=== PATIENT | male | born 1965 | race Caucasian/White ===

== ENCOUNTER 2017-12-20 10:17 | Observation (INO) ==
[2017-12-20] MEDS ORDERED: Ondansetron 4 MG/2 ML VIAL IVP ONE (10:27)
[2017-12-20] MEDS ORDERED: Isovue-370 500 ML INFUS..BTL IV ONE (10:29)
[2017-12-20] MEDS ORDERED: *HR* FentaNYL (PF) 100 MCG/2 ML VIAL IVP ONE (10:30)
--- NOTE | 2017-12-20 10:34 | Emergency Department Note ---
Disposition Clinical Impression: Acute cholecystitis Abdominal pain Qualifiers: Abdominal location: right upper quadrant Qualified Code(s): R10.11 - Right upper quadrant pain Disposition: Admitted As Inpatient Condition: Fair Referrals: Destiney Richard [Primary Care Provider] - Forms: ED Satisfaction Letter, Work/School Release Time of Disposition: 13:38 Abdominal Pain HPI - General Chief Complaint: ED Abdominal Pain Stated Complaint: RLQ Abdominal Pain since AM Time Seen by Provider: 12/20/17 10:23 Source: EMS Mode of arrival: EMS Limitations: no limitations Nursing Notes Reviewed: Yes Vital Signs Reviewed: Yes - History of Present Illness HPI Narrative: Patient is a 52-year-old male who presents to [facility] ED with a chief complaint of right upper quadrant abdominal pain. States his symptoms started this morning when he woke up. He has not been able to eat due to the pain. He has been nauseated but has not vomited. No fevers or chills. No prior abdominal surgeries. No chest pain, difficulty breathing, problems with urination. States he has not had a bowel movement in 2 days. States the pain is 10 out of 10 and is constant. Pt Subjective Complaint: abdominal pain Onset (ago): hour(s) Consistency: constant Location: RUQ Pain Severity: severe Pain Scale: 10 Quality: stabbing, aching Radiation: none Migration to: no migration Improves with: nothing Worsens with: nothing Associated symptoms: Reports: nausea, constipation. Denies: vomiting, diarrhea , fever, chills, dysuria Treatments prior to arrival: none - Related Data Home Medications Medication Instructions Recorded Confirmed Atorvastatin [Lipitor] 10 mg PO HS 12/20/17 12/20/17 Cholecalciferol (D-3) [Vitamin D] 1,000 unit PO DAILY 12/20/17 12/20/17 Doxepin HCl 10 mg PO HS 12/20/17 12/20/17 Folic Acid 1 mg PO DAILY 12/20/17 12/20/17 Gabapentin [Neurontin] 800 mg PO QID 12/20/17 12/20/17 Oxycodone HCl/Acetaminophen 1 tab PO Q6H PRN 12/20/17 12/20/17 [Percocet 5-325 mg Tablet] Tamsulosin HCl [Flomax] 0.4 mg PO DAILY 12/20/17 12/20/17 Venlafaxine XR (24 HR) [Effexor XR] 150 mg PO DAILY 12/20/17 12/20/17 clonazePAM [Klonopin] 1 mg PO BID 12/20/17 12/20/17 Allergies Allergy/AdvReac Type Severity Reaction Status Date / Time amitriptyline Allergy Nightmare Verified 08/01/17 12:55 All systems ED: reviewed and negative except as stated. Abdominal Pain PMH - Past Medical History Medical history: Reports: arthritis, hypertension, other (chronic back pain) Psychiatric history: Reports: no psych history, anxiety, depression - Social History Smoking status: Current every day smoker Alcohol use: Reports: none Drug use: Reports: marijuana Physical Exam - General Limitations: no limitations General appearance: alert, in no apparent distress - Head Head exam: atraumatic, normocephalic, normal inspection - Eye Eye exam: Present: EOMI - ENT ENT exam: normal exam, normal oropharynx, mucous membranes moist - Neck Neck exam: Present: normal inspection, full ROM, trachea midline - Chest Chest inspection: Present: normal inspection, symmetric chest wall rise - Respiratory Respiratory exam: Present: normal lung sounds bilaterally - Cardiovascular Cardiovascular exam: Present: regular rate, normal rhythm, normal heart sounds - Abdominal Exam Abdominal exam: Present: soft, tenderness Abdominal tenderness: Present: RUQ, diffuse, severe - Extremities Exam Extremities exam: Present: normal inspection, full ROM. Absent: tenderness, pedal edema - Neurological Exam Neurological exam: Present: alert, oriented X3 - Psychiatric Psychiatric exam: Present: normal affect, normal mood - Skin Skin exam: Present: warm, dry, intact, normal color Course Course Narrative: Patient seen and examined. Right upper quadrant pain since this morning. Abdominal labs, CT abdomen and pelvis with IV contrast ordered. Bedside ultrasound did show some signs of gallstones and gallbladder wall thickening. Upon discussing with the surgeon Dr. Bhatt, would like for most imaging ordered. We will get a ultrasound of the gallbladder as well. We will continue with the CT since he also has some pain that is generalized. - Reevaluation(s) Reevaluation #1: Imaging shows signs of acute cholecystitis. Findings were discussed with surgeon Dr. Bhatt who would like Mefoxin started. Surgery will consult. We will discuss with hospitalist for admission. Time: 12:41 Reevaluation #2: Discussed with the hospitalist Dr. Saleh who has accepted patient for admission. Time: 13:19 Vital Signs Temperature 97.8 F 12/20/17 10:21 Pulse Rate 62 12/20/17 10:21 Respiratory Rate 20 12/20/17 10:21 Blood Pressure 178/129 12/20/17 10:21 O2 Sat by Pulse Oximetry 98 12/20/17 10:21 Temperature 97.8 F 12/20/17 10:21 Pulse Rate 62 12/20/17 12:57 Respiratory Rate 18 12/20/17 12:57 Blood Pressure 183/121 12/20/17 12:57 O2 Sat by Pulse Oximetry 97 12/20/17 12:57 Oxygen Delivery Oxygen Delivery Room Air Abdominal Pain - Medical Records Medical records reviewed: Yes I reviewed the patient's medical records. - Lab Data Lab results reviewed: Yes I reviewed the patient's lab results. Result diagrams: 12/20/17 10:49 12/20/17 10:49 Lab Results 12/20/17 12/20/17 12/20/17 Range/Units 10:49 10:49 10:49 WBC 10.7 (4.3-11.1) K/mcL RBC 5.03 (4.19-5.50) M/mcL Hgb 15.7 (12.9-16.9) g/dL Hct 46.4 (37.5-50.1) % MCV 92.2 (83.0-100.0) fL MCH 31.2 (28.0-33.3) pg MCHC 33.8 (31.6-35.5) g/dL RDW 13.0 (11.5-14.5) % Plt Count 238 (140-400) K/mcL MPV 10.2 (9.4-12.4) fL Immature Gran % 0.4 (0-4) % Seg Neutrophils % 71.9 % Lymphocytes % 18.5 % Monocytes % 5.6 % Eosinophils % 2.9 % Basophils % 0.7 % Neutrophils # 7.7 (1.6-8.9) K/mcL Lymphocytes # 2.0 (0.6-4.6) K/mcL Monocytes # 0.6 (0.0-1.3) K/mcL Eosinophils # 0.3 (0.0-0.6) K/mcL Basophils # 0.1 (0.0-0.2) K/mcL Sodium 143 (136-145) mEq/L Potassium 4.0 (3.5-5.1) mEq/L Chloride 109 H (98-107) mEq/L Carbon Dioxide 26 (23-29) mEq/L BUN 15 (6-20) mg/dL Creatinine 0.89 (0.70-1.30) mg/dL Est GFR ( Amer) > 60 (> 60) Est GFR (Non-Af Amer) > 60 (> 60) BUN/Creatinine Ratio 17 (6-26) Glucose 122 H (70-105) mg/dL Calculated Osmolality 298 (280-300) Lactic Acid 1.6 (0.5-2.2) mmol/L Calcium 9.7 (8.6-10.3) mg/dL Total Bilirubin 0.2 L (0.3-1.0) mg/dL Direct Bilirubin 0.1 (0.0-0.2) mg/dL Indirect Bilirubin 0.1 (0.0-1.2) mg/dL AST 11 L (13-39) Units/L ALT 10 (7-52) Units/L Alkaline Phosphatase 75 (34-104) Units/L Troponin I < 0.03 (< 0.04) ng/mL Serum Total Protein 6.7 (6.4-8.9) g/dL Albumin 4.5 (3.5-5.7) g/dL Globulin 2.2 L (2.4-3.5) g/dL Albumin/Globulin Ratio 2.0 (1.1-2.2) Lipase 20 (11-82) Units/L Urine Color (Yellow) Urine Clarity (Clear) Urine pH (5.0-8.0) pH Units Ur Specific [place] (1.010-1.025) Urine Protein (Neg-Trace) mg/dL Urine Glucose (UA) (Normal) mg/dL Urine Ketones (Negative) mg/dL Urine Blood (Negative) Urine Nitrite (Negative) Urine Bilirubin (Negative) Urine Urobilinogen (Normal) mg/dL Ur Leukocyte Esterase (Negative) Urine Microscopic RBC (0-3) per hpf Urine Microscopic WBC (0-3) per hpf Ur Squamous Epith Cells (None-Few) per lpf Urine Bacteria (None-Few) per hpf Hyaline Casts (None-Few) per lpf Ur Culture Indicated? (NO) Hepatitis A IgM Ab (Nonreactive) Hep Bs Antigen (Nonreactive) Hep B Core IgM Ab (Nonreactive) Hepatitis C Ab Screen (Nonreactive) 12/20/17 12/20/17 Range/Units 10:49 12:59 WBC (4.3-11.1) K/mcL RBC (4.19-5.50) M/mcL Hgb (12.9-16.9) g/dL Hct (37.5-50.1) % MCV (83.0-100.0) fL MCH (28.0-33.3) pg MCHC (31.6-35.5) g/dL RDW (11.5-14.5) % Plt Count (140-400) K/mcL MPV (9.4-12.4) fL Immature Gran % (0-4) % Seg Neutrophils % % Lymphocytes % % Monocytes % % Eosinophils % % Basophils % % Neutrophils # (1.6-8.9) K/mcL Lymphocytes # (0.6-4.6) K/mcL Monocytes # (0.0-1.3) K/mcL Eosinophils # (0.0-0.6) K/mcL Basophils # (0.0-0.2) K/mcL Sodium (136-145) mEq/L Potassium (3.5-5.1) mEq/L Chloride (98-107) mEq/L Carbon Dioxide (23-29) mEq/L BUN (6-20) mg/dL Creatinine (0.70-1.30) mg/dL Est GFR ( Amer) (> 60) Est GFR (Non-Af Amer) (> 60) BUN/Creatinine Ratio (6-26) Glucose (70-105) mg/dL Calculated Osmolality (280-300) Lactic Acid (0.5-2.2) mmol/L Calcium (8.6-10.3) mg/dL Total Bilirubin (0.3-1.0) mg/dL Direct Bilirubin (0.0-0.2) mg/dL Indirect Bilirubin (0.0-1.2) mg/dL AST (13-39) Units/L ALT (7-52) Units/L Alkaline Phosphatase (34-104) Units/L Troponin I (< 0.04) ng/mL Serum Total Protein (6.4-8.9) g/dL Albumin (3.5-5.7) g/dL Globulin (2.4-3.5) g/dL Albumin/Globulin Ratio (1.1-2.2) Lipase (11-82) Units/L Urine Color Yellow (Yellow) Urine Clarity Clear (Clear) Urine pH 6.0 (5.0-8.0) pH Units Ur Specific [place] 1.029 H (1.010-1.025) Urine Protein Negative (Neg-Trace) mg/dL Urine Glucose (UA) Normal (Normal) mg/dL Urine Ketones Negative (Negative) mg/dL Urine Blood Negative (Negative) Urine Nitrite Negative (Negative) Urine Bilirubin Negative (Negative) Urine Urobilinogen Normal (Normal) mg/dL Ur Leukocyte Esterase Moderate H (Negative) Urine Microscopic RBC 0-3 (0-3) per hpf Urine Microscopic WBC 15-30 H (0-3) per hpf Ur Squamous Epith Cells Few (None-Few) per lpf Urine Bacteria Few (None-Few) per hpf Hyaline Casts None Seen (None-Few) per lpf Ur Culture Indicated? YES A (NO) Hepatitis A IgM Ab Nonreactive (Nonreactive) Hep Bs Antigen Nonreactive (Nonreactive) Hep B Core IgM Ab Nonreactive (Nonreactive) Hepatitis C Ab Screen Nonreactive (Nonreactive) - Radiology Data Radiology results reviewed: Yes I reviewed the patient's radiology results. Abdomen/Pelvis CT 12/20/17 10:29 IMPRESSION: Multiple stones seen within the gallbladder with pericholecystic fluid and mild intrahepatic biliary ductal dilatation concerning for acute cholecystitis. Persistent mild distention of the bladder. D/ / 12/20/2017 12:43:20 Yakov Harrell MD / Jennifer Solano Interpreting Provider: Yakov Harrell MD Gallbladder Ultrasound 12/20/17 10:50 IMPRESSION: Cholelithiasis and positive Rivers sign. Findings could represent acute cholecystitis. Consider HIDA scan for further evaluation. Common duct is mildly dilated at 10 mm, though this is unchanged from prior CT. This could be further evaluated with MRI/ MRCP if indicated. D/ / Nj Balderas MD / Nj Balderas MD Interpreting Provider: Nj Balderas MD - EKG Data EKG attestation: Yes I reviewed and interpreted this EKG. EKG results narrative: EKG done at 10:30 shows normal sinus rhythm with a rate of [address] elevation or depression noted. Normal axis. Attestation Statement - Attestation Attestation: I, Jack Maciel, examined this patient and my medical decision-making was reviewed with the SALES AND MARKETING ANALYST/PA/Advanced Practice Nurse/Resident Physician. I agree with the documented findings, disposition and treatment plan as described except to the extent set forth below. 52-year-old male presents emergency Department with concerns of right upper quadrant abdominal pain. Patient states symptoms started acutely today. States he felt at his baseline health yesterday and woke up with severe pain this morning. Patient denies fever, chills, recent trauma. He does have a history of alcohol abuse in the past. Patient denies history of gallbladder disease in the past. Abdomen was tender to palpation right upper quadrant with mild guarding without evidence of rigidity, or rebound. Bedside ultrasound showed gallbladder wall of 7.3 mm with possible pericholecystic fluid. There was also evidence of cholelithiasis on exam. We called the surgeon, Dr. Bhatt after our initial evaluation and his physician assistant professor of education evaluated the patient at bedside. Laboratory evaluation was largely within normal limits. Imaging studies of the right upper quadrant and abdomen are still pending.
[2017-12-20 11:00] LABS: Basophils # 0.1 K/mcL (0.0-0.2); Basophils % 0.7 %; Eosinophils # 0.3 K/mcL (0.0-0.6); Eosinophils % 2.9 %; Hematocrit 46.4 % (37.5-50.1); Hemoglobin 15.7 g/dL (12.9-16.9); Immature Granulocytes % 0.4 % (0-4); Lymphocytes % 18.5 %; Mean Corpuscular HGB Conc 33.8 g/dL (31.6-35.5); Mean Corpuscular Hemoglobin 31.2 pg (28.0-33.3); Mean Corpuscular Volume 92.2 fL (83.0-100.0); Mean Platelet Volume 10.2 fL (9.4-12.4); Monocytes # 0.6 K/mcL (0.0-1.3); Monocytes % 5.6 %; Neutrophils # 7.7 K/mcL (1.6-8.9); Platelet Count 238 K/mcL (140-400); Red Blood Count 5.03 M/mcL (4.19-5.50); Segmented Neutrophils % 71.9 %
[2017-12-20 11:30] LABS: Troponin I < 0.03 ng/mL (< 0.04)
[2017-12-20 11:37] LABS: Alanine Aminotransferase 10 Units/L (7-52); Albumin 4.5 g/dL (3.5-5.7); Alkaline Phosphatase 75 Units/L (34-104); Aspartate Amino Transferase 11 Units/L (13-39); BUN/Creatinine Ratio 17 (6-26); Bilirubin,Direct 0.1 mg/dL (0.0-0.2); Bilirubin,Indirect 0.1 mg/dL (0.0-1.2); Bilirubin,Total 0.2 mg/dL (0.3-1.0); Blood Urea Nitrogen 15 mg/dL (6-20); Calcium 9.7 mg/dL (8.6-10.3); Carbon Dioxide 26 mEq/L (23-29); Chloride 109 mEq/L (98-107); Globulin 2.2 g/dL (2.4-3.5); Glucose 122 mg/dL (70-105); Lipase 20 Units/L (11-82); Osmolality,Calculated 298 (280-300); Sodium 143 mEq/L (136-145); Total Protein 6.7 g/dL (6.4-8.9); eGFR For Non-African Americans > 60 (> 60)
[2017-12-20 12:55] LABS: Hepatitis A Antibody IgM Nonreactive (Nonreactive); Hepatitis B Core IgM Nonreactive (Nonreactive); Hepatitis B Surface Antigen Nonreactive (Nonreactive); Hepatitis C Virus Antibody Nonreactive (Nonreactive)
[2017-12-20] MEDS ORDERED: cefOXitin 1,000 MG in 0.9 % Sodium Chloride Mini Bag 100 ML IVPB STA (12:58)
[2017-12-20] MEDS ORDERED: *HR* HYDROmorphone (PF) 1 MG/ML SYRINGE IVP ONE (13:02)
[2017-12-20 13:24] LABS: Bilirubin,Urine Negative (Negative); Blood,Urine Negative (Negative); Clarity,Urine Clear (Clear); Color,Urine Yellow (Yellow); Glucose,Urine (UA) Normal (Normal); Ketones,Urine Negative (Negative); Leukocyte Esterase,Urine Moderate (Negative); Nitrite,Urine Negative (Negative); Protein,Urine Negative (Neg-Trace); Specific Gravity,Urine 1.029 (1.010-1.025); Urobilinogen,Urine Normal (Normal)
[2017-12-20 13:27] LABS: Bacteria,Urine Few per hpf (None-Few); Hyaline Casts,Urine None Seen per lpf (None-Few); RBC,Urine 0-3 per hpf (0-3); Squamous Epithelial Cell,Urine Few per lpf (None-Few); WBC,Urine 15-30 per hpf (0-3)
--- NOTE | 2017-12-20 13:30 | General Surgery Consult Note ---
Addendum entered and electronically signed by Jesusita Dawkins CNP 12/20/17 15: 07: Collaborated with attending surgeon. Will plan for surgical intervention in the next 24-48 hours. Recommendations, risks, and benefits are reviewed with the patient and he is agreeable to proceed. A signed consent is placed on the hard chart. Original Note: <Jesusita Dawkins - Last Filed: 12/20/17 14:14> Date of Encounter: 12/20/17 Time of Encounter: 12:00 Assessment and Plan (1) Symptomatic cholelithiasis Current Visit: Yes Status: Acute CT and GB ultrasound with multiple stones seen within the GB. Catina-cholecystic fluid in mild intrahepatic biliary ductal dilation concerning for acute cholecystitis. CBD remains mildly dilated at 10 mm which is unchanged for previous study. CBC is unremarkable, CMP, lipase, lactic acid, and fractionated bilirubin are unremarkable. His hepatitis screening is negative. He previously was a heavy drinker, but has not drank any alcohol in over 7 years. His assessment and imaging is consistent with symptomatic cholelithiasis and without evidence of choledocholithiasis Plan: Likely surgical intervention this admission MIV per primary team NPO Continue IV ATBX GI and DVT prophylaxis (2) Abdominal pain Current Visit: Yes Status: Acute Differential diagnosis include: acute cholecystits vs symptomatic cholelithiasis , vs GERD, vs liver pathology Patient reports dark stool at home for the last week. He recently had a colonoscopy done which showed colon polyps cecum as well as hyperplastic polyps in the rectum and sigmoid colon. hepatitis screening negative LFTs unremarkable Plan: GI cocktail GI prophylaxis IV ofirmev x1 further recommendations per a/p above Qualifiers: Abdominal location: right upper quadrant Qualified Code(s): R10.11 - Right upper quadrant pain History of Present Illness Consult date: 12/20/17 (Dr. Steve Bhatt) Reason for consult: abdominal pain Requesting physician: Sarah Marinelli History of present illness: Micky is a 52-year-old male with a past medical history of colon polyps , previous alcohol use (admits to drinking a "12 pack and a couple shots of liquor daily for several years), but has not drank any alcohol for over 7 years , smoking 1ppd for more than 20 years, marijuana use, arthritis, depression/ anxiety, GERD, hypertension, chronic back pain, shingles, and a surgical history of colonoscopy 2018. He presented on 12/20/2017 with complaints of RUQ for 24 hours. He denies fever , chills, headache, nausea, vomiting, urinary symptoms, diarrhea, constipation, or changes in bowel habits. he denies aggravating or alleviating factors. He reports the pain as 8/10, aching, constant, and without radiation to other areas. He denies bloody vomitus, tarry stool, or bright red blood per rectum. He does endorse "dark stool," but is not able to elaborate beyond that. Surgery has been asked to evaluate this patient for recommendations regarding RUQ pain. Past Med Surg Social Fam HX - Past Medical History Source: patient, old records reviewed Medical history: arthritis, GERD, hypertension Additional medical history: chronic back pain Psychiatric history: anxiety, depression - Past Surgical History Surgical History: orthopedic, other Additional surgical history: right great toe amputatiom, hardware placed in JAw - Social History Smoking Status: Current every day smoker Smokeless Tobacco Status: No Alcohol use: none Drug use: marijuana Occupational status: employed Current living situation: Home - Independent Activity Level: Independent ambulation Recent Out of Country Travel Within the Last 8 Weeks: No Exposure or Possible Exposure to Illness During Travel: No Medications and Allergies Atorvastatin [Lipitor] 10 mg PO HS 12/20/17 [History] Cholecalciferol (D-3) [Vitamin D] 1,000 unit PO DAILY 12/20/17 [History] Doxepin HCl 10 mg PO HS 12/20/17 [History] Folic Acid 1 mg PO DAILY 12/20/17 [History] Gabapentin [Neurontin] 800 mg PO QID 12/20/17 [History] Oxycodone HCl/Acetaminophen [Percocet 5-325 mg Tablet] 1 tab PO Q6H PRN [History] Tamsulosin HCl [Flomax] 0.4 mg PO DAILY 12/20/17 [History] Venlafaxine XR (24 HR) [Effexor XR] 150 mg PO DAILY 12/20/17 [History] clonazePAM [Klonopin] 1 mg PO BID 12/20/17 [History] 3 Allergy/AdvReac Type Severity Reaction Status Date / Time amitriptyline Allergy Nightmare Verified 08/01/17 12:55 Review of Systems All systems PM: reviewed and no additional remarkable complaints except as stated All systems PM: The remainder of the systems were reviewed and are negative General Surgery Exam Initial Vital Signs Temp Pulse Resp BP Pulse Ox 97.8 F 62 20 178/129 98 12/20/17 10:21 12/20/17 10:21 12/20/17 10:21 12/20/17 10:21 12/20/17 10:21 Vital Signs Temp Pulse Resp BP Pulse Ox 12/20/17 12:57 62 18 183/121 97 12/20/17 10:21 97.8 F 62 20 178/129 98 Intake and Output 12/19/17 12/20/17 12/20/17 23:59 07:59 15:59 Other: Weight 108.862 kg Patient Weight 12/20/17 23:59 Weight 108.862 kg VITAL SIGNS: Reviewed. See [facility] GENERAL: In no apparent distress. HEENT: Normocephalic, atraumatic, extraocular motions intact, Sclera is jaundice, oropharynx is pink and moist, there is no neck adenopathy or JVD noted. CHEST/RESPIRATORY: The thorax is free from signs of trauma. Lung sounds: clear to auscultation, normal respiratory effort CARDIAC: Regular rate and rhythm. Normal S1 and S2, without murmurs, gallops, or rubs. VASCULAR: No Edema. 2+ peripheral pulses. ABDOMEN: soft, nondistended, hypoactive bowel sounds, exquisitely tender in the right upper quadrant, positive Rivers sign. MUSCULOSKELETAL: Good range of motion of all major joints. Extremities without clubbing, cyanosis or edema. NEUROLOGIC EXAM: Alert and oriented x 3. Speech normal. Follows commands. PSYCHIATRIC: Mood normal. SKIN: No rash or lesions. Exam Initial Vital Signs Temp Pulse Resp BP Pulse Ox 97.8 F 62 20 178/129 98 12/20/17 10:21 12/20/17 10:21 12/20/17 10:21 12/20/17 10:21 12/20/17 10:21 Results - Labs 12/20/17 10:49 12/20/17 10:49 Abnormal lab results Chloride 109 mEq/L (98-107) H 12/20/17 10:49 Glucose 122 mg/dL (70-105) H 12/20/17 10:49 Total Bilirubin 0.2 mg/dL (0.3-1.0) L 12/20/17 10:49 AST 11 Units/L (13-39) L 12/20/17 10:49 Globulin 2.2 g/dL (2.4-3.5) L 12/20/17 10:49 Diabetes panel 12/20/17 Range/Units 10:49 Sodium 143 (136-145) mEq/L Potassium 4.0 (3.5-5.1) mEq/L Chloride 109 H (98-107) mEq/L Carbon Dioxide 26 (23-29) mEq/L BUN 15 (6-20) mg/dL Creatinine 0.89 (0.70-1.30) mg/dL Glucose 122 H (70-105) mg/dL Calcium 9.7 (8.6-10.3) mg/dL AST 11 L (13-39) Units/L ALT 10 (7-52) Units/L Alkaline Phosphatase 75 (34-104) Units/L Albumin 4.5 (3.5-5.7) g/dL Calcium panel 12/20/17 Range/Units 10:49 Calcium 9.7 (8.6-10.3) mg/dL Albumin 4.5 (3.5-5.7) g/dL Pituitary panel 12/20/17 Range/Units 10:49 Sodium 143 (136-145) mEq/L Potassium 4.0 (3.5-5.1) mEq/L Chloride 109 H (98-107) mEq/L Carbon Dioxide 26 (23-29) mEq/L BUN 15 (6-20) mg/dL Creatinine 0.89 (0.70-1.30) mg/dL Glucose 122 H (70-105) mg/dL Calcium 9.7 (8.6-10.3) mg/dL Adrenal panel 12/20/17 Range/Units 10:49 Sodium 143 (136-145) mEq/L Potassium 4.0 (3.5-5.1) mEq/L Chloride 109 H (98-107) mEq/L Carbon Dioxide 26 (23-29) mEq/L BUN 15 (6-20) mg/dL Creatinine 0.89 (0.70-1.30) mg/dL Glucose 122 H (70-105) mg/dL Calcium 9.7 (8.6-10.3) mg/dL Total Bilirubin 0.2 L (0.3-1.0) mg/dL AST 11 L (13-39) Units/L ALT 10 (7-52) Units/L Alkaline Phosphatase 75 (34-104) Units/L Albumin 4.5 (3.5-5.7) g/dL All other labs normal. - Imaging CT scan - abdomen: report reviewed CT scan - pelvis: report reviewed US - abdomen: report reviewed Consult Discharge Plan - Plan Referrals: Destiney Richard [Primary Care Provider] - <Steve Bhatt - Last Filed: 12/20/17 15:55> Date of Encounter: 12/20/17 Assessment and Plan (1) Acute cholecystitis Current Visit: Yes Status: Acute The patient has acute cholecystitis and cholelithiasis. We will plan lap scopic cholecystectomy and intraoperative cholangiogram later this afternoon. I discussed the risks and benefits with him and he wished to proceed. Review of Systems All systems PM: The remainder of the systems were reviewed and are negative General Surgery Exam Initial Vital Signs Temp Pulse Resp BP Pulse Ox 97.8 F 62 20 178/129 98 12/20/17 10:21 12/20/17 10:21 12/20/17 10:21 12/20/17 10:21 12/20/17 10:21 Exam Initial Vital Signs Temp Pulse Resp BP Pulse Ox 97.8 F 62 20 178/129 98 12/20/17 10:21 12/20/17 10:21 12/20/17 10:21 12/20/17 10:21 12/20/17 10:21 Results - Labs 12/20/17 10:49 12/20/17 10:49 Abnormal lab results Chloride 109 mEq/L (98-107) H 12/20/17 10:49 Glucose 122 mg/dL (70-105) H 12/20/17 10:49 Total Bilirubin 0.2 mg/dL (0.3-1.0) L 12/20/17 10:49 AST 11 Units/L (13-39) L 12/20/17 10:49 Globulin 2.2 g/dL (2.4-3.5) L 12/20/17 10:49 Ur Specific [place] 1.029 (1.010-1.025) H 12/20/17 12:59 Ur Leukocyte Esterase Moderate (Negative) H 12/20/17 12:59 Urine Microscopic WBC 15-30 per hpf (0-3) H 12/20/17 12:59 Ur Culture Indicated? YES (NO) A 12/20/17 12:59 All other labs normal. - Imaging CT scan - pelvis: image reviewed (I personally reviewed the CAT scan images of the abdomen and pelvis. The patient has cholelithiasis and pericholecystic fluid.) - Attending Attestation I have personally performed a face to face evaluation on this patient. I have reviewed and agree with the care plan. History and Exam by me shows: The patient is seen and evaluated on the general medical floor. He was admitted by our clinical nurse practitioner. I evaluated the patient and then discussed his care with the clinical nurse practitioner. The patient has had on and off pain for months now has unrelenting right upper quadrant pain. Ultrasound and CAT scan demonstrates cholelithiasis and pericholecystic fluid.
[2017-12-20] MEDS ORDERED: GI Cocktail 40 ML EACH PO ONE (13:33)
[2017-12-20] MEDS ORDERED: Acetaminophen IV 1,000 MG/100 ML INFUS..BTL IVPB ONE (13:33)
[2017-12-20] MEDS ORDERED: OXYCODONE Oral CONC 10 MG/0.5 ML ORAL.SYG SL PRN ×4 (14:11→19:29)
[2017-12-20] MEDS ORDERED: 0.9 % Sodium Chloride 1,000 ML IVC SCH (14:15)
[2017-12-20] MEDS ORDERED: Naloxone 0.4 MG/ML INJ IVP PRN ×2 (14:53→19:29)
--- NOTE | 2017-12-20 14:59 | Internal Med History&Physical ---
<Yael Graham - Last Filed: 12/20/17 21:40> Date of Encounter: 12/20/17 Time of Encounter: 14:59 Internal Medicine - H&P: HPI Chief complaint: RUQ Abdominal pain Admitted From: Home Plans for Post Hospital Care: Home History of present illness: Mr. Gauthier is a 52 year old male with history of HLD, HTN, alchol abuse (quit 7 years ago) and psych issues. The patient indicated that he began to have RUQ abdominal pain, that began a day or so ago. Ct of abd showed stones, acute cholecystitis with persistent mild distended bladder. The patient UA showed leukocyte esterase moderate amount, and wbc 15-30. Patient denies any urinary symptoms at home. The patient reports poor appetite, with associated nausea, constipation, pain in RUQ is reported as 10/10. ED consulted surgery and per their note plans for surgical intervention while inpatient. WBC is 10.7. Patient was started on Mefoxin per recommendation per Dr. Bhatt. I have discussed this case with Dr. Tipton. Past Med Surg Social Fam HX - Past Medical History Medical history: arthritis, hypertension, other (chronic back pain) Additional medical history: chronic back pain Psychiatric history: no psych history, anxiety, depression - Past Surgical History Surgical History: orthopedic, other Additional surgical history: right great toe amputatiom, hardware placed in JAw - Social History Smoking Status: Current every day smoker Smokeless Tobacco Status: No Alcohol use: none Drug use: marijuana Internal Medicine - H&P: Meds Atorvastatin [Lipitor] 10 mg PO HS 12/20/17 [History] Cholecalciferol (D-3) [Vitamin D] 1,000 unit PO DAILY 12/20/17 [History] Doxepin HCl 10 mg PO HS 12/20/17 [History] Folic Acid 1 mg PO DAILY 12/20/17 [History] Gabapentin [Neurontin] 800 mg PO QID 12/20/17 [History] Oxycodone HCl/Acetaminophen [Percocet 5-325 mg Tablet] 1 tab PO Q6H PRN [History] Tamsulosin HCl [Flomax] 0.4 mg PO DAILY 12/20/17 [History] Venlafaxine XR (24 HR) [Effexor XR] 150 mg PO DAILY 12/20/17 [History] clonazePAM [Klonopin] 1 mg PO BID 12/20/17 [History] 3 Allergy/AdvReac Type Severity Reaction Status Date / Time amitriptyline Allergy Nightmare Verified 08/01/17 12:55 All Systems PM: A 10-system review of systems was performed and is negative for pertinent findings except as documented above in the HPI. - Constitutional Constitutional: malaise, no chills, no fever(s), no night sweats - EENT Eyes: no change in vision, no discharge, no pain, no photophobia Ears: no ear discharge, no ear pain, no tinnitus Nose, mouth and throat: no dysphagia, no nasal discharge, no neck pain, no sore throat - Cardiovascular Cardiovascular ROS IM: no chest pain, no diaphoresis, no dyspnea, no lightheadedness, no palpitations, no syncope - Respiratory Respiratory: no cough, no dyspnea, no wheezing, no excessive phlegm production - Gastrointestinal Gastrointestinal: no abdominal pain, no diarrhea, no hematemesis, no hematochezia, no melena, no nausea, no vomiting - Musculoskeletal Musculoskeletal ROS IM: no numbness, no tingling - Integumentary Integumentary IM: no rash, no unusual bruising - Neurological Neurological ROS: no confusion, no convulsions, no focal weakness, no numbness, no tingling, no tremor(s) - Hematologic/Lymphatic Hematologic/Lymphatic: no easy bruising - Constitutional Vitals: Temp Pulse Resp BP Pulse Ox 97.8 F 62 18 183/121 97 12/20/17 10:21 12/20/17 12:57 12/20/17 12:57 12/20/17 12:57 12/20/17 12:57 Internal Med - H&P Results - Labs CBC & Chem 7: 12/20/17 10:49 12/20/17 10:49 - Assessment and plan (1) Abdominal pain Current Visit: Yes Status: Acute Assessment and plan: Surgical consult. Patient acute cholelithiasis will be managed by surgery. Monitor daily labs Qualifiers: Abdominal location: right upper quadrant Qualified Code(s): R10.11 - Right upper quadrant pain (2) Acute cholecystitis Current Visit: Yes Status: Acute Assessment and plan: Managed per surgery Monitor daily labs (3) Hypertension Current Visit: Yes Status: Acute Assessment and plan: BP uncontrolled, likely related to abdominal pain. However patient has history of hypertension No antihypertensive meds @ home Will provide hydralazine when necessary May need to add a oral anti-hypertensive Qualifiers: Hypertension type: essential hypertension Qualified Code(s): I10 - Essential (primary) hypertension - Time Spent With Patient Total time spent is greater than 50% in coordination of care (as documented) at patient's floor/unit and/or counseling patient: less than 15 minutes <Julieta Tipton O - Last Filed: 12/20/17 23:45> Date of Encounter: 12/20/17 Internal Medicine - H&P: HPI History of present illness: Mr. Gauthier is a 52 year old male that presented with RUQ pain. Pt states he had similar symptoms about 2 weeks ago but resolved spontaneously. ED disussed case with surgery and pt is s/p chapis dior. All Systems PM: A 10-system review of systems was performed and is negative for pertinent findings except as documented above in the HPI. - Constitutional Vitals: Temp Pulse Resp BP Pulse Ox 98.7 F 64 16 121/83 96 12/20/17 19:29 12/20/17 19:29 12/20/17 20:12 12/20/17 19:29 12/20/17 20:12 General appearance: Present: A&O X 3, no acute distress Exam: drowsy due to anesthesia - Head Head exam: Present: atraumatic, normocephalic - Eye Eye exam: Present: PERRL, conjuntiva pink, sclera anicteric Pupils: Present: PERRL - Neck Neck exam general surgery: Present: supple, trachea midline. Absent: lymphadenopathy - Respiratory Respiratory exam: Present: CTAB. Absent: accessory muscle use, rales, rhonchi, wheezes - Cardiovascular Cardiovascular exam: Present: RRR, +S1, +S2. Absent: diastolic murmur, gallop, rubs, systolic murmur - GI/Abdominal GI/Abdominal exam: Present: normal bowel sounds, soft, no peritoneal signs. Absent: distended, tenderness Additional comments: surgically tender abdomen - Extremities Exam Extremities exam: Present: warm, radial pulses palpable and symmetrical. Absent : calf tenderness, cyanotic, pedal edema - Neurological Exam Neurological exam: Present: CN II-XII intact, oriented X3, no focal deficits. Absent: pronater drift, facial droop, speech deficit - Skin Skin exam: Present: dry, intact Internal Med - H&P Results - Labs CBC & Chem 7: 12/20/17 10:49 12/20/17 10:49 - Impressions ITS Impressions Cholangiogram,Operative 12/20/17 17:58 IMPRESSION: Biliary ductal dilatation without evident filling defect or leak. See operative note for full details. D/ / Mich Farrar / Mich Farrar Interpreting Provider: Mich Farrar - Attending Attestation I performed a history and physical exam of the patient and discussed his management with the SERVICE ATTENDANT CAFETERIA. I reviewed the SERVICE ATTENDANT CAFETERIA's note and agree with the documented findings and plan of care with exception of addendum added to assessment and plan - Assessment and plan (1) Symptomatic cholelithiasis Current Visit: Yes Status: Acute Assessment and plan: Seen by surgery and s/p lap ovi. Adding AM lipid panel. (2) Acute cholecystitis Current Visit: Yes Status: Acute Assessment and plan: s/p lap ovi Day #0 done by surgery 12/20/2017. (3) Alcohol abuse Current Visit: No Status: Resolved Assessment and plan: Patient denies priorhx of ETOH withdrawal or seizures related to ETOH. Denies tremors or being hospitalized for DT's. Adding CIWA protocol (4) Hypertension Current Visit: Yes Status: Acute Qualifiers: Hypertension type: essential hypertension Qualified Code(s): I10 - Essential (primary) hypertension (5) Abdominal pain Current Visit: Yes Status: Acute Assessment and plan: prn pain control. Qualifiers: Abdominal location: right upper quadrant Qualified Code(s): R10.11 - Right upper quadrant pain - Time Spent With Patient Total time spent is greater than 50% in coordination of care (as documented) at patient's floor/unit and/or counseling patient: 25 - 35 minutes
[2017-12-20] MEDS ORDERED: cefOXitin 1,000 MG in 0.9 % Sodium Chloride Mini Bag 100 ML IVPB SCH (16:00)
[2017-12-20] MEDS: Ipratropium/Albuterol Neb 3 ML IH SCH ×4 (16:03→23:34)
[2017-12-20] MEDS ORDERED: *HR* Midazolam HCl 2 MG/2 ML VIAL ONE (16:24)
[2017-12-20] MEDS ORDERED: *HR* Propofol 200 MG/20 ML VIAL IVP ONE (16:24)
[2017-12-20] MEDS ORDERED: *HR* FentaNYL (PF) 100 MCG/2 ML VIAL ONE ×2 (16:24→18:31)
[2017-12-20] MEDS ORDERED: Lidocaine -MPF 2% 2 ML VIAL ONE (16:27)
[2017-12-20] MEDS ORDERED: *HR* Rocuronium Bromide 50 MG/5 ML VIAL ONE (16:27)
[2017-12-20] MEDS ORDERED: Ondansetron 4 MG/2 ML VIAL ONE (16:27)
[2017-12-20] MEDS ORDERED: *HR* Succinylcholine 200 MG/10 ML VIAL IVP ONE (16:27)
[2017-12-20] MEDS ORDERED: Dexamethasone 4 MG/ML VIAL ONE (16:27)
[2017-12-20] MEDS ORDERED: Lidocaine -MPF 4% 5 ML AMPUL ONE (16:32)
[2017-12-20] MEDS ORDERED: CefOXitin 1,000 MG VIAL ONE (16:44)
[2017-12-20] MEDS ORDERED: Isovue-300 50 ML VIAL IVP ONE (16:45)
--- NOTE | 2017-12-20 16:50 | Anesthesia Evaluation PreOp ---
Date of Encounter: 12/20/17 Time of Encounter: 17:20 - Past History Planned Operation: Lap. 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: Other (Anxiety, depression) Other Medical History: Denies Any Significant HX Anesthesia History: No Prior Anesthetic Complications, Past Anesthesia Alcohol Use: none Drug use: marijuana Medications and Allergies Atorvastatin [Lipitor] 10 mg PO HS 12/20/17 [History] Cholecalciferol (D-3) [Vitamin D] 1,000 unit PO DAILY 12/20/17 [History] Doxepin HCl 10 mg PO HS 12/20/17 [History] Folic Acid 1 mg PO DAILY 12/20/17 [History] Gabapentin [Neurontin] 800 mg PO QID 12/20/17 [History] Oxycodone HCl/Acetaminophen [Percocet 5-325 mg Tablet] 1 tab PO Q6H PRN [History] Tamsulosin HCl [Flomax] 0.4 mg PO DAILY 12/20/17 [History] Venlafaxine XR (24 HR) [Effexor XR] 150 mg PO DAILY 12/20/17 [History] clonazePAM [Klonopin] 1 mg PO BID 12/20/17 [History] 3 Allergy/AdvReac Type Severity Reaction Status Date / Time amitriptyline Allergy Nightmare Verified 08/01/17 12:55 - Meds/Allergy Pre-op Review Medications Reviewed: Yes Allergies Reviewed: Yes Beta Blockers on Current Med List: No Anesthesia Results - Labs 12/20/17 10:49 12/20/17 10:49 Anesthesia Exam Vital Signs/O2 Sat, Most Current Temp Pulse Resp BP Pulse Ox 98.3 F 53 18 164/97 95 12/20/17 15:06 12/20/17 15:06 12/20/17 15:06 12/20/17 15:06 12/20/17 15:06 Height: 1.83 m Weight: 109 kg, BMI 33 NPO (# of Hours): 8 - HEENT Pupil (Motor): Pupils equal Mallampati: II Teeth: Missing, Poor dentition Oral Opening: Greater than 3 - 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
--- NOTE | 2017-12-20 17:15 | Electrocardiograph Report ---
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
[2017-12-20] MEDS ORDERED: *HR* Promethazine 25 MG/ML VIAL IVP PRN (17:29)
[2017-12-20] MEDS ORDERED: *HR* OxyCODONE Immed Rel 5 MG TABLET PO PRN (17:29)
[2017-12-20] MEDS ORDERED: Acetaminophen IV 1,000 MG/100 ML INFUS..BTL IVPB SCH ×2 (18:00→22:00)
[2017-12-20] MEDS ORDERED: Pantoprazole 40 MG VIAL IVP SCH (18:00)
[2017-12-20] MEDS ORDERED: CefOXitin 2,000 MG VIAL ONE (18:06)
[2017-12-20] MEDS ORDERED: Neostigmine Methylsulfate 3 MG/3 ML SYRINGE ONE (18:13)
--- NOTE | 2017-12-20 18:49 | Operative Note ---
Date of procedure: 12/20/17 Pre-op diagnosis: Acute cholecystitis and cholelithiasis Post-op diagnosis: same Procedure: Laparoscopic cholecystectomy, cholangiogram Anesthesia: MAXA Surgeon: Steve Bhatt Was there an buyer assistant present: Yes Service Delivery Analyst: Vera Machado Estimated blood loss (cc): 20 Specimen: Gallbladder and contents Condition: stable Disposition: PACU Procedure in Detail: Laparoscopic cholecystectomy and intraoperative cholangiogram Operative procedure after informed consent and appropriate patient identification timeout the patient was taken to the major operating suite and placed supine position given adequate general endotracheal anesthesia the abdomen is prepped and draped in sterile fashion utilizing ChloraPrep standard draping techniques timeout was taken patient is identified. I made a vertical midline incision below the umbilicus dissected down to level of fascia there are 2 traction stitches placed in the abdominal cavity was entered visually. A Storey trocar was placed in the abdomen and the abdomen was insufflated to 15 mmHg pressure CO2 the gallbladder was visualized. A placement 11 port in the subxiphoid area and 2 5 mm ports in the subcostal area. The gallbladder was grasped and elevated. A variety of blunt and sharp dissection techniques were used to isolate the cystic duct and cystic artery. The cystic artery was controlled with 2 surgical clips proximally and one distally and it was divided I placed a surgical clip on the neck the gallbladder and obtained an intraoperative cholangiogram using 40 mL of Isovue. Intraoperative cholangiogram was normal. The cholangiocatheter was removed and the cystic duct was controlled with 2 surgical clips proximally and was divided the gallbladder was removed from the gallbladder fossae using electrocautery. The gallbladder was removed through the #11 port site using a specimen bag. I replaced the #11 port and irrigated with copious amounts of antibiotic containing solution. There is no evidence of bleeding or bile leak. All trochars were removed. Fascia was closed with 0 Vicryl skin with 2-0 and 4-0 Vicryl he tolerated the procedure well and was transferred to recovery in stable condition
[2017-12-20] MEDS: *HR* FentaNYL (PF) 100 MCG/2 ML VIAL IVP PRN ×2 (18:54→19:07)
[2017-12-20] MEDS ORDERED: *HR* HYDROmorphone 2 MG TABLET PO ONE (19:12)
--- NOTE | 2017-12-20 19:26 | Anesthesia Evaluation Post Op ---
Date of Encounter: 12/20/17 Time of Encounter: 19:35 - Vital Signs Vital Signs: Vital Signs/O2 Sat/Glucose, Most Current Temp Pulse Resp BP Pulse Ox 12/20/17 19:19 98.7 F 75 16 133/82 95 12/20/17 19:09 54 20 121/86 99 12/20/17 18:59 64 20 119/91 94 12/20/17 18:49 97.2 F L 64 20 143/103 100 12/20/17 16:20 16 92 - Airway Airway: Non-obstructed - Cardiovascular Regular Rate - Mental Status Mental Status: Alert & Oriented, Answers Appropriately - Pain Pain Scale: 3 - Nausea Vomiting Nausea Vomiting: Not Present - Hydration Hydration: Ice chips - Discharge PostOp Status: Transfer Patient to floor
[2017-12-20] MEDS ORDERED: cefOXitin 1,000 MG in Water for inj. (sterile) 20 ML 10 ML IVP SCH (21:00)
[2017-12-20] MEDS: cefOXitin 1,000 MG in Water for inj. (sterile) 20 ML 10 ML IVP SCH (22:06)
[2017-12-20] MEDS: Acetaminophen IV 1,000 MG/100 ML INFUS..BTL IVPB SCH (22:11)
[2017-12-20] MEDS: 0.9 % Sodium Chloride 1,000 ML IVC SCH (22:49)
[2017-12-21] MEDS: *HR* LORazepam 2 MG/ML VIAL IVP PRN ×3 (00:11→07:14)
[2017-12-21 00:57] LABS: Chol/HDL Ratio 2.8 (0-4.9)
[2017-12-21 00:58] LABS: BUN/Creatinine Ratio 14 (6-26); Blood Urea Nitrogen 12 mg/dL (6-20); Calcium 9.3 mg/dL (8.6-10.3); Carbon Dioxide 25 mEq/L (23-29); Chloride 106 mEq/L (98-107); Glucose 152 mg/dL (70-105); Osmolality,Calculated 295 (280-300); Potassium 4.1 mEq/L (3.5-5.1); Sodium 141 mEq/L (136-145); eGFR For Non-African Americans > 60 (> 60)
[2017-12-21 01:28] LABS: Basophils % 0.2 %; Eosinophils % 0.1 %; Hematocrit 43.9 % (37.5-50.1); Hemoglobin 14.4 g/dL (12.9-16.9); Immature Granulocytes % 0.4 % (0-4); Mean Corpuscular HGB Conc 32.8 g/dL (31.6-35.5); Mean Corpuscular Hemoglobin 30.3 pg (28.0-33.3); Mean Corpuscular Volume 92.4 fL (83.0-100.0); Mean Platelet Volume 10.3 fL (9.4-12.4); Monocytes % 1.3 %; Platelet Count 232 K/mcL (140-400); Red Blood Count 4.75 M/mcL (4.19-5.50); Red Cell Distribution Width 13.2 % (11.5-14.5)
[2017-12-21 01:29] LABS: Lymphocytes # 0.9 K/mcL (0.6-4.6); Monocytes # 0.2 K/mcL (0.0-1.3); Neutrophils # 14.2 K/mcL (1.6-8.9)
[2017-12-21] MEDS: Ipratropium/Albuterol Neb 3 ML IH SCH ×3 (03:59→11:01)
[2017-12-21] MEDS: Acetaminophen IV 1,000 MG/100 ML INFUS..BTL IVPB SCH ×2 (04:11→08:42)
[2017-12-21] MEDS: 0.9 % Sodium Chloride 1,000 ML IVC SCH (04:27)
[2017-12-21] MEDS: cefOXitin 1,000 MG in Water for inj. (sterile) 20 ML 10 ML IVP SCH ×2 (05:00→11:29)
[2017-12-21] MEDS ORDERED: Pantoprazole 40 MG VIAL IVP SCH (06:00)
[2017-12-21] MEDS ORDERED: *HR* OxyCODONE/APAP 7.5/325 TABLET PO PRN ×2 (09:00→09:18)
[2017-12-21] MEDS ORDERED: Acetaminophen IV 500 MG/50 ML INFUS..BTL IVPB ONE (09:01)
--- NOTE | 2017-12-21 09:13 | General Surgery Progress Note ---
<Jesusita Dawkins - Last Filed: 12/21/17 09:06> Date of Encounter: 12/21/17 Time of Encounter: 07:00 - Assessment and Plan (1) Symptomatic cholelithiasis Status: Acute Date of procedure: 12/20/17 Pre-op diagnosis: Acute cholecystitis and cholelithiasis Post-op diagnosis: same Procedure: Laparoscopic cholecystectomy, cholangiogram Anesthesia: MAXA Surgeon: Steve Bhatt POD #1 as above. Noted per op report, intraoperative cholangiogram was normal Plan: advanced diet as tolerated Okay to discharge from a surgical perspective Recommend aggressive pulmonary toileting andincentive spirometry at MD given significant smoking history No need antibiotics at discharge Surgery will not continue oxycodone as patient is on chronic pain medication and recently had a prescription filled for 120 tablets on December 02 (2) Abdominal pain Status: Acute see above Qualifiers: Abdominal location: right upper quadrant Qualified Code(s): R10.11 - Right upper quadrant pain Subjective Patient reports: still having pain, pain is less, tolerating a regular diet, voiding w/o difficulty, no flatus, no bowel movement, afebrile Objective Vital Signs - Last 8 Hours Temp Pulse Resp BP Pulse Ox 12/21/17 07:29 16 94 12/21/17 06:59 98.4 F 84 16 111/68 95 12/21/17 04:54 98.5 F 81 16 113/70 95 12/21/17 04:01 16 94 Intake and Output 12/20/17 12/21/17 12/21/17 23:59 07:59 15:59 Intake Total 1200 / 1200 485 / 485 Output Total 20 / 20 225 / 225 Balance 1180 / 1180 260 / 260 Intake: IV Fluids 1200 / 1200 485 / 485 0.9 % Sodium Chloride 1,000 ML 1000 / 1000 375 / 375 @ 125 mls/hr IVC .Q8H IKE Rx#: [id number] Mefoxin 1,000 MG In Water for 10 / 10 inj. (sterile) 10 ML @ 300 mls/ hr IVP Q8H IKE Rx#:[id number] Ofirmev 1,000 mg/100 ml 1,000 200 / 200 100 / 100 mg In 100 ml @ 400 mls/hr IVPB Q6H IKE Rx#:[id number] Oral 0 / 0 0 / 0 Output: Urine 225 / 225 Estimated Blood Loss Other: Meal NPO Percent of Meal Consumed 0% Weight 109.4 kg Patient Weight 12/21/17 23:59 Weight 109.4 kg VITAL SIGNS: Reviewed. See [facility] GENERAL: In no apparent distress. HEENT: Normocephalic, atraumatic, pupils are equal and reactive, extraocular motions intact, oropharynx is pink and moist, there is no neck adenopathy or JVD noted. CHEST/RESPIRATORY: The thorax is free from signs of trauma. Lung sounds: decreased tight breath sounds CARDIAC: Regular rate and rhythm. Normal S1 and S2, without murmurs, gallops, or rubs. VASCULAR: No Edema. 2+ peripheral pulses. ABDOMEN: soft, expected postoperative tenderness, hypoactive bowel sounds INCISION: Surgical incision is clean, dry, and intact. There are no signs of cellulitis or infection noted. MUSCULOSKELETAL: Good range of motion of all major joints. Extremities without clubbing, cyanosis or edema. NEUROLOGIC EXAM: Alert and oriented x 3. Speech normal. Follows commands. PSYCHIATRIC: Mood normal. SKIN: No rash or lesions. - Labs 12/21/17 00:50 12/21/17 00:11 Diabetes panel 12/21/17 12/21/17 Range/Units 00:11 00:11 Sodium 141 (136-145) mEq/L Potassium 4.1 (3.5-5.1) mEq/L Chloride 106 (98-107) mEq/L Carbon Dioxide 25 (23-29) mEq/L BUN 12 (6-20) mg/dL Creatinine 0.87 (0.70-1.30) mg/dL Glucose 152 H (70-105) mg/dL Calcium 9.3 (8.6-10.3) mg/dL Triglycerides 62 (< 150) mg/dL HDL Cholesterol 41 (40-59) mg/dL Calcium panel 12/21/17 Range/Units 00:11 Calcium 9.3 (8.6-10.3) mg/dL Pituitary panel 12/21/17 Range/Units 00:11 Sodium 141 (136-145) mEq/L Potassium 4.1 (3.5-5.1) mEq/L Chloride 106 (98-107) mEq/L Carbon Dioxide 25 (23-29) mEq/L BUN 12 (6-20) mg/dL Creatinine 0.87 (0.70-1.30) mg/dL Glucose 152 H (70-105) mg/dL Calcium 9.3 (8.6-10.3) mg/dL Adrenal panel 12/21/17 Range/Units 00:11 Sodium 141 (136-145) mEq/L Potassium 4.1 (3.5-5.1) mEq/L Chloride 106 (98-107) mEq/L Carbon Dioxide 25 (23-29) mEq/L BUN 12 (6-20) mg/dL Creatinine 0.87 (0.70-1.30) mg/dL Glucose 152 H (70-105) mg/dL Calcium 9.3 (8.6-10.3) mg/dL - VTE Documentation of Mechanical Device: Intermittent pneumatic compression device Consult Discharge Plan - Plan Instructions: Laparoscopic Cholecystectomy (DC) Additional Instructions: General Surgical Discharge Instructions 1. No pushing, pulling, or lifting greater than 15 lbs for 2-4 weeks (depending upon procedure). 2. You may shower beginning today, but no tub baths, soaking, or swimming for 2 weeks. 3. You may resume driving when you are off narcotics and are safe to react in a car. 4. Take ibuprofen every 8 hours for discomfort. If this does not relieve discomfort, you may take your home dose of as needed Percocet. Take narcotics as directed. Do not take more narcotics then directed and do not share your narcotics with any other person. Do not drink alcohol while on narcotics. 5. Take stool softeners (Colace) or a water based laxative (Miralax) while taking narcotics. You may hold for loose stools. 6. Report any fevers greater than 100.5F, increase abdominal discomfort, drainage that looks like pus, increased redness or pain at the surgical site, or any vomiting. 7. Report any pain in the calves, shortness of breath, or rapid heartbeat. 8. Follow-up in the office as directed. Referrals: Destiney Richard [Primary Care Provider] - Belén Hilton CNP [Advanced Practice Nurse] - 01/06/18 9:00 am Prescriptions: Ciprofloxacin [Cipro] 500 mg PO BID #10 tablet Docusate Sodium [Colace] 100 mg PO BID #30 capsule Ibuprofen 800 mg PO Q8H PRN #30 tablet PRN Reason: Pain <Nova,Steve T - Last Filed: 12/23/17 09:10> Date of Encounter: 12/21/17 - Assessment and Plan (1) Acute cholecystitis Status: Acute Objective - Labs 12/21/17 00:50 12/21/17 00:11 - Attending Attestation I examined this patient and my medical decision-making was reviewed with the Resident Physician. I agree with the documented findings, disposition and treatment plan as described except to the extent set forth below. The patient is seen and evaluated on morning rounds with the resident and the clinical nurse practitioner. He is having a good deal of discomfort after laparoscopic cholecystectomy. We will make an evaluation later in the day to see if he is ready for discharge. Common bile duct is cleared by cholangiogram. The gallbladder was completely obstructed. Steve Bhatt MD FACS
[2017-12-21] MEDS ORDERED: Venlafaxine XR (24 HR) 150 MG CAP.ER.24H PO SCH (09:15)
[2017-12-21] MEDS ORDERED: clonazePAM 1 MG TABLET PO SCH (09:15)
[2017-12-21] MEDS: Gabapentin 400 MG CAPSULE PO SCH ×2 (09:22→11:27)
[2017-12-21 10:48] VITALS: BP 133/73
[2017-12-21] MEDS ORDERED: Ketorolac 30 MG/ML VIAL IVP SCH (12:00)
--- NOTE | 2017-12-21 12:23 | Discharge Summary ---
- NOTES TO OUTPATIENT PROVIDER Notes to Outpatient Provider: Follow-up with surgery as outpatient Orders not resulted at time of discharge: Pending orders 12/20/17 18:26 Surgical Pathology [PTH] Routine Date of Encounter: 12/21/17 Time of Encounter: 12:14 - Discharge Diagnosis (1) Acute cholecystitis Priority: Primary Status: Acute (2) Abdominal pain Priority: Secondary Status: Acute Qualifiers: Abdominal location: right upper quadrant Qualified Code(s): R10.11 - Right upper quadrant pain (3) Hypertension Priority: Secondary Status: Acute Qualifiers: Hypertension type: essential hypertension Qualified Code(s): I10 - Essential (primary) hypertension (4) Symptomatic cholelithiasis Priority: Secondary Status: Acute (5) Smoker Priority: Secondary Status: Acute (6) UTI (urinary tract infection) Priority: Secondary Status: Acute Qualifiers: Urinary tract infection type: acute cystitis Hematuria presence: without hematuria Qualified Code(s): N30.00 - Acute cystitis without hematuria Hospital course: Mr. Gauthier is a 52 year old male with history of alcohol abuse and current every day smoker, GERD, hypertension, chronic back pain resented to the ED with chief complaint of right upper quadrant pain. CT and GB ultrasound at admission with multiple stones seen within the GB. Catina-cholecystic fluid in mild intrahepatic biliary ductal dilation concerning for acute cholecystitis. CBD remains mildly dilated at 10 mm which is unchanged for previous study. CBC is unremarkable, CMP, lipase, lactic acid, and fractionated bilirubin are unremarkable. His hepatitis screening is negative. He previously was a heavy drinker, but has not drank any alcohol in over 7 years. CIWA protocol was activated on admission. Surgery was consulted and he is Laparoscopic cholecystectomy, cholangiogram. he was treated with IV Abx prior and post procedure. surgery followed up with the patient, he tolerated diet and he was stable for discharge. UA on admission was positive. he was give ciprofloxacin for 5 days. he was told to follow up with PCP if he continued to have symptoms. it was Recommend aggressive pulmonary toileting andincentive spirometry at [facility] given significant smoking history which he declined. he was counseled extensively on smoking cessation and risk associated with alcohol use disorder. as per surgery recommendations the following was discussed by surgery team and myself. 1. No pushing, pulling, or lifting greater than 15 lbs for 2-4 weeks (depending upon procedure). 2. You may shower beginning today, but no tub baths, soaking, or swimming for 2 weeks. 3. You may resume driving when you are off narcotics and are safe to react in a car. 4. Take ibuprofen every 8 hours for discomfort. If this does not relieve discomfort, you may take your home dose of as needed Percocet. Take narcotics as directed. Do not take more narcotics then directed and do not share your narcotics with any other person. Do not drink alcohol while on narcotics. 5. Take stool softeners (Colace) or a water based laxative (Miralax) while taking narcotics. You may hold for loose stools. 6. Report any fevers greater than 100.5F, increase abdominal discomfort, drainage that looks like pus, increased redness or pain at the surgical site, or any vomiting. 7. Report any pain in the calves, shortness of breath, or rapid heartbeat. 8. Follow-up in the office as directed. Discharge discussed with: patient, nurse Time spent discussing smoking cessation with patient: more than 10 minutes - Time Spent with Patient Total time spent providing and/or coordinating discharge services: Greater than 30 minutes (40) - Discharge Medications Prescriptions: Ciprofloxacin [Cipro] 500 mg PO BID #10 tablet Docusate Sodium [Colace] 100 mg PO BID #30 capsule Ibuprofen 800 mg PO Q8H PRN #30 tablet PRN Reason: Pain Home Medications: Atorvastatin [Lipitor] 10 mg PO HS 12/20/17 [History] Cholecalciferol (D-3) [Vitamin D] 1,000 unit PO DAILY 12/20/17 [History] Doxepin HCl 10 mg PO HS 12/20/17 [History] Folic Acid 1 mg PO DAILY 12/20/17 [History] Gabapentin [Neurontin] 800 mg PO QID 12/20/17 [History] Oxycodone HCl/Acetaminophen [Percocet 5-325 mg Tablet] 1 tab PO Q6H PRN [History] Tamsulosin HCl [Flomax] 0.4 mg PO DAILY 12/20/17 [History] Venlafaxine XR (24 HR) [Effexor Xr] 150 mg PO DAILY 12/20/17 [History] clonazePAM [Klonopin] 1 mg PO BID 12/20/17 [History] Ciprofloxacin [Cipro] 500 mg PO BID #10 tablet 12/21/17 [Rx] Docusate Sodium [Colace] 100 mg PO BID #30 capsule 12/21/17 [Rx] Ibuprofen 800 mg PO Q8H PRN #30 tablet 12/21/17 [Rx] Allergies/Adverse Reactions: 3 Allergy/AdvReac Type Severity Reaction Status Date / Time amitriptyline Allergy Nightmare Verified 08/01/17 12:55 Date of admission: 12/20/17 13:49 Primary care physician: Destiney Richard - Constitutional Vitals: Temp Pulse Resp BP Pulse Ox 98.3 F 96 16 133/73 95 12/21/17 10:44 12/21/17 10:44 12/21/17 11:02 12/21/17 10:44 12/21/17 11:02 General appearance: Present: A&O X 3, no acute distress Exam: General: Patient is alert, oriented, no acute distress, Head: atraumatic, normocephalic, Eye: normal appearance, PERRL, no scleral icterus, no conjunctival injection ENT: mucous membranes moist, normal external ear exam Neck: normal inspection, trachea midline, full ROM, no carotid bruits Chest: normal inspection, symmetric chest rise Respiratory: Good respiratory effort. Bilateral breath sounds are clear without wheezing, crackles, or rhonchi. Cardiovascular: Regular rate and rhythm. s1 and s2 No clicks, rubs, gallops, or murmors. Abdomen: Bowel sounds present normoactive x-4 quadrants. Abdomen is soft, nondistended. Surgical incision is clean, dry, and intact. There are no signs of cellulitis or infection noted. musculoskeletal: Spontaneously moving all extremities. no edema, no calf tenderness Skin: warm, dry, intact. Neuro: Alert and oriented x4. Sensation light touch intact. Cranial nerves 2- 12 is intact. Not aphasic Psych: Patient's affect is normal - Patient Status Disposition: Home, Self-Care Condition: Fair Functional capacity at discharge: independent ambulation - Discharge Instructions Instructions: Laparoscopic Cholecystectomy (DC) Follow Up With: Destiney Richard [Primary Care Provider] - Belén Hilton [employer] [Advanced Practice Nurse] - 01/06/18 9:00 am Additional Instructions: General Surgical Discharge Instructions 1. No pushing, pulling, or lifting greater than 15 lbs for 2-4 weeks (depending upon procedure). 2. You may shower beginning today, but no tub baths, soaking, or swimming for 2 weeks. 3. You may resume driving when you are off narcotics and are safe to react in a car. 4. Take ibuprofen every 8 hours for discomfort. If this does not relieve discomfort, you may take your home dose of as needed Percocet. Take narcotics as directed. Do not take more narcotics then directed and do not share your narcotics with any other person. Do not drink alcohol while on narcotics. 5. Take stool softeners (Colace) or a water based laxative (Miralax) while taking narcotics. You may hold for loose stools. 6. Report any fevers greater than 100.5F, increase abdominal discomfort, drainage that looks like pus, increased redness or pain at the surgical site, or any vomiting. 7. Report any pain in the calves, shortness of breath, or rapid heartbeat. 8. Follow-up in the office as directed. - Diet and Activity Activity: increase activity as tolerated Diet: advance to your usual diet - VTE Documentation of Mechanical Device: Intermittent pneumatic compression device
[2017-12-21] MEDS ORDERED: Thiamine (B-1) 100 MG, Folic Acid 1 MG, MVI, adult with vitamin K 10 ML in 0.9 % Sodi... IVPB SCH (18:00)
[2017-12-21] MEDS ORDERED: (Doxepin Hcl [Doxepin Hcl] 10 MG) PO SCH (21:00)
== END 2017-12-21 13:00 | disposition home or self-care (01) ==
LOC: 3ANU 10:17 → EMEROO 10:17 → 3ANU 15:01
PROVIDERS: ADMIT Internal Medicine; ATTEND Internal Medicine

== ENCOUNTER 2018-02-14 20:26 | Observation (INO) ==
[2018-02-14] MEDS ORDERED: Isovue-370 500 ML INFUS..BTL IV ONE (20:40)
[2018-02-14] MEDS ORDERED: 0.9 % Sodium Chloride 1,000 ML IVC ONE (20:54)
--- NOTE | 2018-02-14 21:05 | Emergency Department Note ---
Disposition Clinical Impression: Shoulder pain, Chest pain, Abnormal EKG Disposition: Admitted As Inpatient Condition: Fair General Adult HPI - General Chief complaint: ED Extremity Problem,Nontraumatic Stated complaint: Shoulder pain Time Seen by Provider: 02/14/18 20:40 Source: patient, EMS Mode of arrival: EMS Limitations: other Nursing Notes Reviewed: Yes Vital Signs Reviewed: Yes - History of Present Illness Pain Scale: 4 - Related Data Home Medications Medication Instructions Recorded Confirmed Atorvastatin [Lipitor] 10 mg PO HS 12/20/17 02/14/18 Cholecalciferol (D-3) [Vitamin D] 1,000 unit PO DAILY 12/20/17 02/14/18 Doxepin HCl 10 mg PO HS 12/20/17 02/14/18 Folic Acid 1 mg PO DAILY 12/20/17 02/14/18 Gabapentin [Neurontin] 800 mg PO QID 12/20/17 02/14/18 Tamsulosin HCl [Flomax] 0.4 mg PO DAILY 12/20/17 02/14/18 Venlafaxine XR (24 HR) [Effexor Xr] 150 mg PO DAILY 12/20/17 02/14/18 clonazePAM [Klonopin] 1 mg PO BID 12/20/17 02/14/18 Buspirone HCl [Buspar] 7.5 mg PO BID 02/14/18 02/14/18 hydrOXYzine pamoate [HydrOXYzine 25 - 50 mg PO Q6H PRN 02/14/18 02/14/18 Pamoate] Previous Rx's Medication Instructions Recorded Docusate Sodium [Colace] 100 mg PO BID #30 capsule 12/21/17 Ibuprofen [Motrin] 600 mg PO TIDWM #90 tablet 02/16/18 Oxycodone HCl/Acetaminophen 1.5 tab PO Q6H PRN 10 Days #30 02/16/18 [Percocet 5-325 mg Tablet] Allergies Allergy/AdvReac Type Severity Reaction Status Date / Time amitriptyline Allergy Nightmare Verified 02/14/18 22:03 Past Medical History - Past Medical History Medical history: Reports: arthritis, hypertension, other Surgical history: Reports: orthopedic, other Psychiatric history: Reports: no psych history, anxiety, depression - Social History Smoking Status: Current every day smoker Smokeless Tobacco Status: No Alcohol use: Reports: none Drug use: Reports: marijuana Physical Exam - General General appearance: alert Course Vital Signs Temperature 0 F L 02/14/18 20:42 Pulse Rate 100 02/14/18 20:42 Respiratory Rate 18 02/14/18 20:42 Blood Pressure 162/115 02/14/18 20:42 O2 Sat by Pulse Oximetry 98 02/14/18 20:42 Temperature 98.7 F 02/16/18 11:30 Pulse Rate 79 02/16/18 11:30 Respiratory Rate 18 02/16/18 11:30 Blood Pressure 134/89 02/16/18 11:30 O2 Sat by Pulse Oximetry 93 02/16/18 11:30 Oxygen Delivery Oxygen Delivery Room Air Medical Decision Making - Lab Data Result diagrams: 02/14/18 21:14 02/14/18 21:14 Lab Results 02/14/18 02/14/18 02/14/18 Range/Units 20:34 21:14 21:14 WBC 12.0 H (4.3-11.1) K/mcL RBC 4.84 (4.19-5.50) M/mcL Hgb 14.7 (12.9-16.9) g/dL Hct 44.1 (37.5-50.1) % MCV 91.1 (83.0-100.0) fL MCH 30.4 (28.0-33.3) pg MCHC 33.3 (31.6-35.5) g/dL RDW 13.1 (11.5-14.5) % Plt Count 218 (140-400) K/mcL MPV 9.9 (9.4-12.4) fL Immature Gran % 0.4 (0-4) % Seg Neutrophils % 73.8 % Lymphocytes % 16.1 % Monocytes % 8.1 % Eosinophils % 1.2 % Basophils % 0.4 % Neutrophils # 8.9 (1.6-8.9) K/mcL Lymphocytes # 1.9 (0.6-4.6) K/mcL Monocytes # 1.0 (0.0-1.3) K/mcL Eosinophils # 0.1 (0.0-0.6) K/mcL Basophils # 0.1 (0.0-0.2) K/mcL PT 12.7 H (9.4-12.1) Seconds INR 1.1 APTT 28.3 (26.0-36.0) Seconds Sodium (136-145) mEq/L Potassium (3.5-5.1) mEq/L Chloride (98-107) mEq/L Carbon Dioxide (23-29) mEq/L BUN (6-20) mg/dL Creatinine (0.70-1.30) mg/dL Est GFR ( Amer) (> 60) Est GFR (Non-Af Amer) (> 60) BUN/Creatinine Ratio (6-26) Glucose (70-105) mg/dL POC Glucose 126 H (70-99) mg/dL Calculated Osmolality (280-300) Calcium (8.6-10.3) mg/dL Total Bilirubin (0.3-1.0) mg/dL Direct Bilirubin (0.0-0.2) mg/dL Indirect Bilirubin (0.0-1.2) mg/dL AST (13-39) Units/L ALT (7-52) Units/L Alkaline Phosphatase (34-104) Units/L Troponin I (< 0.04) ng/mL Serum Total Protein (6.4-8.9) g/dL Albumin (3.5-5.7) g/dL Globulin (2.4-3.5) g/dL Albumin/Globulin Ratio (1.1-2.2) Ethyl Alcohol (Less than 10) mg/dL Blood Type Antibody Screen 02/14/18 02/14/18 Range/Units 21:14 21:14 WBC (4.3-11.1) K/mcL RBC (4.19-5.50) M/mcL Hgb (12.9-16.9) g/dL Hct (37.5-50.1) % MCV (83.0-100.0) fL MCH (28.0-33.3) pg MCHC (31.6-35.5) g/dL RDW (11.5-14.5) % Plt Count (140-400) K/mcL MPV (9.4-12.4) fL Immature Gran % (0-4) % Seg Neutrophils % % Lymphocytes % % Monocytes % % Eosinophils % % Basophils % % Neutrophils # (1.6-8.9) K/mcL Lymphocytes # (0.6-4.6) K/mcL Monocytes # (0.0-1.3) K/mcL Eosinophils # (0.0-0.6) K/mcL Basophils # (0.0-0.2) K/mcL PT (9.4-12.1) Seconds INR APTT (26.0-36.0) Seconds Sodium 139 (136-145) mEq/L Potassium 3.7 (3.5-5.1) mEq/L Chloride 104 (98-107) mEq/L Carbon Dioxide 25 (23-29) mEq/L BUN 10 (6-20) mg/dL Creatinine 1.12 (0.70-1.30) mg/dL Est GFR ( Amer) > 60 (> 60) Est GFR (Non-Af Amer) > 60 (> 60) BUN/Creatinine Ratio 9 (6-26) Glucose 115 H (70-105) mg/dL POC Glucose (70-99) mg/dL Calculated Osmolality 288 (280-300) Calcium 9.4 (8.6-10.3) mg/dL Total Bilirubin 0.4 (0.3-1.0) mg/dL Direct Bilirubin 0.0 (0.0-0.2) mg/dL Indirect Bilirubin 0.4 (0.0-1.2) mg/dL AST 16 (13-39) Units/L ALT 18 (7-52) Units/L Alkaline Phosphatase 72 (34-104) Units/L Troponin I < 0.03 (< 0.04) ng/mL Serum Total Protein 6.6 (6.4-8.9) g/dL Albumin 4.3 (3.5-5.7) g/dL Globulin 2.3 L (2.4-3.5) g/dL Albumin/Globulin Ratio 1.9 (1.1-2.2) Ethyl Alcohol < 10 (Less than 10) mg/dL Blood Type A POSITIVE Antibody Screen NEGATIVE Attestation Statement - Attestation Attestation: I examined this patient and my medical decision-making was reviewed with the Resident Physician. I agree with the documented findings, disposition and treatment plan as described except to the extent set forth below. Patient to the ED complaining of left shoulder pain. Patient arrived by EMS were called the room. Patient was altered and diaphoretic. He Grabbed in the left shoulder side of his chest. An EKG that appears to be bigeminy. No signs of ischemia. We will check CT for acute CT head as he was altered. CT chest and pelvis were concerned for dissection. On arrival back to the ED patient now awake alert and talking. He should not states that he has pain in his left clavicle from a prior football injury. He was recently taken off his Percocet. The patient CTA is were negative. Patient still having pain. No ischemic changes on EKG. Admitted to medicine for further cardiac workup. Abdomen/Pelvis CTA 02/14/18 20:40 IMPRESSION: No acute arterial abnormality in the chest abdomen or pelvis. There is no aneurysm or dissection. There is suggested mild mucous plugging at both lung bases with associated dependent atelectasis Small pericardial effusion Post cholecystectomy. Probable cyst in the right kidney Urinary bladder distention and diffuse wall thickening suggesting cystitis Prostate enlargement and prostate calcifications Incomplete distention of the sigmoid colon. This is most likely due to underdistention and less likely due to colitis Diverticula are noted without findings diagnostic of diverticulitis. D/ / Oswald Davenport / Oswald Davenport Interpreting Provider: Oswald Davenport Chest CTA 02/14/18 20:40 IMPRESSION: No acute arterial abnormality in the chest abdomen or pelvis. There is no aneurysm or dissection. There is suggested mild mucous plugging at both lung bases with associated dependent atelectasis Small pericardial effusion Post cholecystectomy. Probable cyst in the right kidney Urinary bladder distention and diffuse wall thickening suggesting cystitis Prostate enlargement and prostate calcifications Incomplete distention of the sigmoid colon. This is most likely due to underdistention and less likely due to colitis Diverticula are noted without findings diagnostic of diverticulitis. D/ / Oswald Davenport / Oswald Davenport Interpreting Provider: Oswald Davenport Head CT 02/14/18 20:40 IMPRESSION: No acute intracranial abnormality. Likely acute right maxillary sinusitis. D/ / Philomena Bob MD / Philomena Bob MD Interpreting Provider: Philomena Bob MD Shoulder MRI 02/15/18 09:30 IMPRESSION: 1. No rotator cuff or biceps tear. 2. Mild acromioclavicular and glenohumeral degenerative changes. Cartilage fissuring in the anterior inferior glenoid. 3. Degenerative tearing in the anterior inferior glenoid labrum. D/ / 02/15/2018 15:03:45 Anoop Braxton MD / [facility] Inter[facility] Provider: Anoop Braxton MD
--- NOTE | 2018-02-14 21:11 | Emergency Department Note ---
Disposition Clinical Impression: Abnormal EKG Shoulder pain Qualifiers: Chronicity: acute Laterality: left Qualified Code(s): M25.512 - Pain in left shoulder Chest pain Qualifiers: Chest pain type: unspecified Qualified Code(s): R07.9 - Chest pain, unspecified Disposition: Admitted As Inpatient Condition: Fair Referrals: Destiney Richard [Primary Care Provider] - Forms: ED Satisfaction Letter Time of Disposition: 22:02 General Adult HPI - General Chief complaint: ED Extremity Problem,Nontraumatic Stated complaint: Shoulder pain Time Seen by Provider: 02/14/18 20:40 Source: patient Mode of arrival: EMS Nursing Notes Reviewed: Yes Vital Signs Reviewed: Yes - History of Present Illness HPI Narrative: 52-year-old male persists for evaluation of shoulder pain. Patient states that pain started this morning but does have issues of chronic pain in that shoulder. Patient arrived via EMS. Upon arrival the patient was altered and diaphoretic. Patient was not responding appropriately. Patient had an EKG which showed no ST elevation. At that time was thought to obtain emergent CT of the head chest abdomen pelvis. Patient did receive 4 mg of morphine in route via EMS but was acting appropriately following that became less responsive once arrival to the ED. Patient history of bright via EMS was complaining of left shoulder plain that started this morning. Patient denied any specific injury. Once the patient was in CAT scan he was becoming more and more responsive. Providing history stating that he is out of his Percocet and that he does follow with pain management. Patient states it is an old football injury and shoulder. Pain is worse with movement of the shoulder. No fevers cough. Labile Pain Scale: 4 - Related Data Home Medications Medication Instructions Recorded Confirmed Atorvastatin [Lipitor] 10 mg PO HS 12/20/17 02/14/18 Cholecalciferol (D-3) [Vitamin D] 1,000 unit PO DAILY 12/20/17 02/14/18 Doxepin HCl 10 mg PO HS 12/20/17 02/14/18 Folic Acid 1 mg PO DAILY 12/20/17 02/14/18 Gabapentin [Neurontin] 800 mg PO QID 12/20/17 02/14/18 Oxycodone HCl/Acetaminophen 1 tab PO Q6H PRN 12/20/17 02/14/18 [Percocet 5-325 mg Tablet] Tamsulosin HCl [Flomax] 0.4 mg PO DAILY 12/20/17 02/14/18 Venlafaxine XR (24 HR) [Effexor Xr] 150 mg PO DAILY 12/20/17 02/14/18 clonazePAM [Klonopin] 1 mg PO BID 12/20/17 02/14/18 Buspirone HCl [Buspar] 7.5 mg PO BID 02/14/18 02/14/18 hydrOXYzine pamoate [HydrOXYzine 25 - 50 mg PO Q6H PRN 02/14/18 02/14/18 Pamoate] Previous Rx's Medication Instructions Recorded Docusate Sodium [Colace] 100 mg PO BID #30 capsule 12/21/17 Ibuprofen 800 mg PO Q8H PRN #30 tablet 12/21/17 Allergies Allergy/AdvReac Type Severity Reaction Status Date / Time amitriptyline Allergy Nightmare Verified 02/14/18 22:03 All systems ED: reviewed and negative except as stated. Constitutional: Denies: fever Cardiovascular: Reports: chest pain Respiratory: Reports: cough Gastrointestinal: Denies: abdominal pain, nausea, vomiting Past Medical History - Past Medical History Source: patient Medical history: Reports: arthritis, hypertension, other Surgical history: Reports: orthopedic, other Psychiatric history: Reports: no psych history, anxiety, depression - Social History Smoking Status: Current every day smoker Smokeless Tobacco Status: No Alcohol use: Reports: none Drug use: Reports: marijuana Physical Exam - General Limitations: no limitations General appearance: alert, in distress - Head Head exam: atraumatic, normocephalic, normal inspection - Eye Eye exam: Present: normal appearance - ENT ENT exam: normal exam - Neck Neck exam: Present: normal inspection - Chest Chest inspection: Present: normal inspection, symmetric chest wall rise, tenderness (Tenderness of the left upper chest) - Respiratory Respiratory exam: Present: normal lung sounds bilaterally. Absent: respiratory distress - Cardiovascular Cardiovascular exam: Present: regular rate, normal rhythm. Absent: systolic murmur - Abdominal Exam Abdominal exam: Present: soft, Non-Tender - Extremities Exam Extremities exam: Present: normal inspection, other (Right lower toe amputation) . Absent: pedal edema - Expanded Lower Extremity Exam Neurovascular/Tendon exam: Present: normal capillary refill - Back Exam Back exam: Present: normal inspection - Neurological Exam Neurological exam: Present: alert, oriented X3, CN II-XII intact - Skin Skin exam: Present: warm, dry, intact, normal color Course Course Narrative: Patient arrived via EMS. EMS was called to left shoulder pain. Patient presented in acute distress diaphoretic complaining of chest pain. Initial EKG showed a bigeminy rhythm with no ST elevation. Narrow complex. No signs of acute ischemia. Patient was rushed to the CAT scanner for concerns of dissection. Patient also had a head CT given his mental status. Patient was transferred over the CT scanner with physician at bedside. No immediate dissection was noted. Returning from the ED the patient became more and more responsive and providing additional history. Stating that he has had shoulder pain chronically and is been out of his Percocet. Given the fact that the patient was diaphoretic holding his chest and complaining of left shoulder pain EKG was reviewed with the on-call housekeeping room attendant. - Reevaluation(s) Reevaluation #1: Patient is in no acute distress. Patient does confirm the history is complaining of pain in her shoulder. Patient states that he has been out of his Percocet eyes primary care doctor. CT scan results awaiting. Given the patient's diaphoresis and chest pain early on will treat initially with ACS patient be admitted for observation. Time: 22:01 Reevaluation #2: Patient was given a nitroglycerin trial and did not improve his symptoms. Alternatively daily and Percocet. Concerns the patient may be in some withdrawal. Time: 22:38 - Consultations Consultation #1: Given the patient's initial presentation in EKG was sent to the on-call housekeeping room attendant for review. Awaiting labs and CT imaging results. Patient repeat EKG shows normal sinus rhythm. Discussed with cardiology who states that this appears to be a junctional rhythm from the first EKG with no signs of STEMI. Time: 21:11 Vital Signs Temperature 0 F L 02/14/18 20:42 Pulse Rate 100 02/14/18 20:42 Respiratory Rate 18 02/14/18 20:42 Blood Pressure 162/115 02/14/18 20:42 O2 Sat by Pulse Oximetry 98 02/14/18 20:42 Temperature 98.9 F 02/14/18 22:08 Pulse Rate 125 02/14/18 22:21 Respiratory Rate 18 02/14/18 22:21 Blood Pressure 106/78 02/14/18 22:21 O2 Sat by Pulse Oximetry 96 02/14/18 22:21 Oxygen Delivery Oxygen Delivery Room Air Medical Decision Making - MDM Narrative Medical decision making narrative: Patient initially presented for complaint of left shoulder pain via EMS. During the initial evaluation the patient he became with decreased responsiveness obtundation diaphoretic. EKG obtained at that time shows a junctional perhaps bigeminy rhythm with no ST elevation. This was reviewed with the on-call housekeeping room attendant. Patient was complaining of pain at that time. Given the patient's status concerns of aortic dissection pathology and the patient was sent over for CT had chest abdomen pelvis. Patient became more more appropriate and responsive. Patient's CT of his head chest and pelvis are unremarkable. Patient later went on to discuss that he is out of his pain medication. Patient's initial complaint possibly related to withdrawal symptoms however given the patient's abnormal EKG and initial presentation in the ED the patient will be observed overnight in the hospital. Patient was given aspirin and nitroglycerin given negative CTA of the chest for dissection. On repeat evaluation the ED the patient is noted to be using his phone and in no acute distress. Patient is possibly going to medication withdrawal but will be observed overnight. - Lab Data Lab results reviewed: Yes I reviewed the patient's lab results. Result diagrams: 02/14/18 21:14 02/14/18 21:14 Lab Results 02/14/18 02/14/18 02/14/18 Range/Units 21:14 21:14 21:14 WBC 12.0 H (4.3-11.1) K/mcL RBC 4.84 (4.19-5.50) M/mcL Hgb 14.7 (12.9-16.9) g/dL Hct 44.1 (37.5-50.1) % MCV 91.1 (83.0-100.0) fL MCH 30.4 (28.0-33.3) pg MCHC 33.3 (31.6-35.5) g/dL RDW 13.1 (11.5-14.5) % Plt Count 218 (140-400) K/mcL MPV 9.9 (9.4-12.4) fL Immature Gran % 0.4 (0-4) % Seg Neutrophils % 73.8 % Lymphocytes % 16.1 % Monocytes % 8.1 % Eosinophils % 1.2 % Basophils % 0.4 % Neutrophils # 8.9 (1.6-8.9) K/mcL Lymphocytes # 1.9 (0.6-4.6) K/mcL Monocytes # 1.0 (0.0-1.3) K/mcL Eosinophils # 0.1 (0.0-0.6) K/mcL Basophils # 0.1 (0.0-0.2) K/mcL PT 12.7 H (9.4-12.1) Seconds INR 1.1 APTT 28.3 (26.0-36.0) Seconds Sodium 139 (136-145) mEq/L Potassium 3.7 (3.5-5.1) mEq/L Chloride 104 (98-107) mEq/L Carbon Dioxide 25 (23-29) mEq/L BUN 10 (6-20) mg/dL Creatinine 1.12 (0.70-1.30) mg/dL Est GFR ( Amer) > 60 (> 60) Est GFR (Non-Af Amer) > 60 (> 60) BUN/Creatinine Ratio 9 (6-26) Glucose 115 H (70-105) mg/dL Calculated Osmolality 288 (280-300) Calcium 9.4 (8.6-10.3) mg/dL Total Bilirubin 0.4 (0.3-1.0) mg/dL Direct Bilirubin 0.0 (0.0-0.2) mg/dL Indirect Bilirubin 0.4 (0.0-1.2) mg/dL AST 16 (13-39) Units/L ALT 18 (7-52) Units/L Alkaline Phosphatase 72 (34-104) Units/L Troponin I < 0.03 (< 0.04) ng/mL Serum Total Protein 6.6 (6.4-8.9) g/dL Albumin 4.3 (3.5-5.7) g/dL Globulin 2.3 L (2.4-3.5) g/dL Albumin/Globulin Ratio 1.9 (1.1-2.2) Ethyl Alcohol < 10 (Less than 10) mg/dL Blood Type Antibody Screen 02/14/18 Range/Units 21:14 WBC (4.3-11.1) K/mcL RBC (4.19-5.50) M/mcL Hgb (12.9-16.9) g/dL Hct (37.5-50.1) % MCV (83.0-100.0) fL MCH (28.0-33.3) pg MCHC (31.6-35.5) g/dL RDW (11.5-14.5) % Plt Count (140-400) K/mcL MPV (9.4-12.4) fL Immature Gran % (0-4) % Seg Neutrophils % % Lymphocytes % % Monocytes % % Eosinophils % % Basophils % % Neutrophils # (1.6-8.9) K/mcL Lymphocytes # (0.6-4.6) K/mcL Monocytes # (0.0-1.3) K/mcL Eosinophils # (0.0-0.6) K/mcL Basophils # (0.0-0.2) K/mcL PT (9.4-12.1) Seconds INR APTT (26.0-36.0) Seconds Sodium (136-145) mEq/L Potassium (3.5-5.1) mEq/L Chloride (98-107) mEq/L Carbon Dioxide (23-29) mEq/L BUN (6-20) mg/dL Creatinine (0.70-1.30) mg/dL Est GFR ( Amer) (> 60) Est GFR (Non-Af Amer) (> 60) BUN/Creatinine Ratio (6-26) Glucose (70-105) mg/dL Calculated Osmolality (280-300) Calcium (8.6-10.3) mg/dL Total Bilirubin (0.3-1.0) mg/dL Direct Bilirubin (0.0-0.2) mg/dL Indirect Bilirubin (0.0-1.2) mg/dL AST (13-39) Units/L ALT (7-52) Units/L Alkaline Phosphatase (34-104) Units/L Troponin I (< 0.04) ng/mL Serum Total Protein (6.4-8.9) g/dL Albumin (3.5-5.7) g/dL Globulin (2.4-3.5) g/dL Albumin/Globulin Ratio (1.1-2.2) Ethyl Alcohol (Less than 10) mg/dL Blood Type A POSITIVE Antibody Screen NEGATIVE - Radiology Data Radiology results reviewed: Yes I reviewed the patient's radiology results. Abdomen/Pelvis CTA 02/14/18 20:40 IMPRESSION: No acute arterial abnormality in the chest abdomen or pelvis. There is no aneurysm or dissection. There is suggested mild mucous plugging at both lung bases with associated dependent atelectasis Small pericardial effusion Post cholecystectomy. Probable cyst in the right kidney Urinary bladder distention and diffuse wall thickening suggesting cystitis Prostate enlargement and prostate calcifications Incomplete distention of the sigmoid colon. This is most likely due to underdistention and less likely due to colitis Diverticula are noted without findings diagnostic of diverticulitis. D/ / Oswald Davenport / Oswald Davenport Interpreting Provider: Oswald Davenport Chest CTA 02/14/18 20:40 IMPRESSION: No acute arterial abnormality in the chest abdomen or pelvis. There is no aneurysm or dissection. There is suggested mild mucous plugging at both lung bases with associated dependent atelectasis Small pericardial effusion Post cholecystectomy. Probable cyst in the right kidney Urinary bladder distention and diffuse wall thickening suggesting cystitis Prostate enlargement and prostate calcifications Incomplete distention of the sigmoid colon. This is most likely due to underdistention and less likely due to colitis Diverticula are noted without findings diagnostic of diverticulitis. D/ / Oswald Davenport / Oswald Davenport Interpreting Provider: Oswald Davenport Head CT 02/14/18 20:40 IMPRESSION: No acute intracranial abnormality. Likely acute right maxillary sinusitis. D/ / Philomena Bob MD / Philomena Bob MD Interpreting Provider: Philomena Bob MD - EKG Data EKG #1 EKG attestation: Yes I reviewed and interpreted this EKG. Rate: normal Rhythm: junctional [place]/QRS: normal T wave inversions noted in: aVR, v1 Interpretation: no acute changes, nonspecific ST-T wave changes S.B.A.R. - S.B.A.R. Situation: Demographics Background: Presenting Complaint Assessment: Vital Signs, Course and respsone to treatment, Patient/Family Expectation Recommendation: Barrier(s) to disposition, Recommendation based on pending studies, treatments, or consults Alonzo Report Given to: Dr. Ingrid Rosado Repor Time: 22:59
[2018-02-14 21:27] LABS: Basophils # 0.1 K/mcL (0.0-0.2); Basophils % 0.4 %; Eosinophils # 0.1 K/mcL (0.0-0.6); Eosinophils % 1.2 %; Hematocrit 44.1 % (37.5-50.1); Hemoglobin 14.7 g/dL (12.9-16.9); Immature Granulocytes % 0.4 % (0-4); Lymphocytes # 1.9 K/mcL (0.6-4.6); Lymphocytes % 16.1 %; Mean Corpuscular HGB Conc 33.3 g/dL (31.6-35.5); Mean Corpuscular Hemoglobin 30.4 pg (28.0-33.3); Mean Corpuscular Volume 91.1 fL (83.0-100.0); Mean Platelet Volume 9.9 fL (9.4-12.4); Monocytes % 8.1 %; Neutrophils # 8.9 K/mcL (1.6-8.9); Platelet Count 218 K/mcL (140-400); Red Blood Count 4.84 M/mcL (4.19-5.50); Red Cell Distribution Width 13.1 % (11.5-14.5); Segmented Neutrophils % 73.8 %
[2018-02-14 21:37] LABS: INR 1.1; Prothrombin Time 12.7 Seconds (9.4-12.1)
[2018-02-14 21:39] LABS: Activated Partial Thrombo Time 28.3 Seconds (26.0-36.0)
[2018-02-14 21:54] LABS: Troponin I < 0.03 ng/mL (< 0.04)
[2018-02-14 21:55] LABS: Alanine Aminotransferase 18 Units/L (7-52); Albumin 4.3 g/dL (3.5-5.7); Albumin/Globulin Ratio 1.9 (1.1-2.2); Alkaline Phosphatase 72 Units/L (34-104); Aspartate Amino Transferase 16 Units/L (13-39); BUN/Creatinine Ratio 9 (6-26); Bilirubin,Indirect 0.4 mg/dL (0.0-1.2); Bilirubin,Total 0.4 mg/dL (0.3-1.0); Blood Urea Nitrogen 10 mg/dL (6-20); Calcium 9.4 mg/dL (8.6-10.3); Carbon Dioxide 25 mEq/L (23-29); Chloride 104 mEq/L (98-107); Ethanol < 10 mg/dL (Less than 10); Globulin 2.3 g/dL (2.4-3.5); Glucose 115 mg/dL (70-105); Osmolality,Calculated 288 (280-300); Potassium 3.7 mEq/L (3.5-5.1); Sodium 139 mEq/L (136-145); Total Protein 6.6 g/dL (6.4-8.9); eGFR For Non-African Americans > 60 (> 60)
[2018-02-14] MEDS: Nitroglycerin 0.4 MG TAB.SUBL SL PRN ×3 (22:12→22:18)
[2018-02-14] MEDS: Aspirin 325 MG TABLET PO ONE ×2 (22:16→22:18)
[2018-02-14] MEDS ORDERED: *HR* OxyCODONE/APAP 10/325 TABLET PO ONE (22:26)
[2018-02-15] MEDS: Aspirin 325 MG TABLET PO ONE (03:03)
[2018-02-15] MEDS: *HR* OxyCODONE/APAP 5/325 TABLET PO PRN ×4 (05:19→23:05)
--- NOTE | 2018-02-15 09:14 | Cardiology Consult Note ---
Date of Encounter: 02/15/18 Time of Encounter: 09:08 Assessment and Plan (1) Atypical chest pain Current Visit: Yes Status: Acute Patient presented with Left upper chest and shoulder pain on 02/14/18 Patient has history of football injury to this shoulder and has been seeing a pain management doctor for his chronic pain, pain is controlled with Percoset normally but he ran out a few days ago. Pain is reproducible on palpation, range or motion testing, and muscle strength testing of the upper left extremity. HE had an outpatient MRI scheduled for today of his shoulder and back through his pain management doctor. His troponin has been <0.03 for two draws Because upper chest wall and shoulder pain is reproducible on exam, EKG is normal, and troponin <0.03 x2, we do not believe this pain is cardiac in nature at this time. We believe a consult to orthopedics would be warranted Discussion w patient/family: The assessment and plan as outlined above was discussed with the patient and/or family members who expressed understanding and agreement. All questions were answered. Thank you for involving us in the care of your patient. Please call with any questions. History of Present Illness Consult date: 02/14/18 Requesting physician: Jaden Powers Consult reason: abnormal EKG Chief complaint: Shoulder Pain History of present illness: Mr. Gauthier is a 52 year old male with PMH of hypercholesterolemia for which he takes atorvastatin, back and shoulder pain for which he see's a new pain management doctor in [place]. He denies any history of HTN, Diabetes, or other medical conditions. He presented to the ED on 02/14 with Left shoulder pain. He states that he had slept on his left arm wrong, which has happened before in the past. Typically he can get it moving which lowers his pain but this time he was not able to move his arm much and the pain got increasingly worse. He said over the last few days he has not been feeling well due to running out of his Percoset (he was taking Percoset 5, 4 times daily for back pain). He states that he had a football injury when he was a kid and his shoulder has had pain off and on since then. He can localize the pain by pointing with one finger to the upper pectoral muscle. He states he is in more pain this morning and rates his pain a 7 to 8 out of 10. He was groaning in bed when I entered the room. Past Med Surg Social Fam HX - Past Medical History Medical history: arthritis, hyperlipidemia, hypertension, other Additional medical history: chronic back pain Psychiatric history: anxiety, depression - Past Surgical History Surgical History: orthopedic, other Additional surgical history: right great toe amputation - Social History Smoking Status: Current every day smoker Packs per day: 1 Smokeless Tobacco Status: No Alcohol use: none Drug use: marijuana - Family History Mother Hx Family Endocrine Disorder: Yes (DM) Medications and Allergies Atorvastatin [Lipitor] 10 mg PO HS 12/20/17 [History] Cholecalciferol (D-3) [Vitamin D] 1,000 unit PO DAILY 12/20/17 [History] Doxepin HCl 10 mg PO HS 12/20/17 [History] Folic Acid 1 mg PO DAILY 12/20/17 [History] Gabapentin [Neurontin] 800 mg PO QID 12/20/17 [History] Oxycodone HCl/Acetaminophen [Percocet 5-325 mg Tablet] 1 tab PO Q6H PRN [History] Tamsulosin HCl [Flomax] 0.4 mg PO DAILY 12/20/17 [History] Venlafaxine XR (24 HR) [Effexor Xr] 150 mg PO DAILY 12/20/17 [History] clonazePAM [Klonopin] 1 mg PO BID 12/20/17 [History] Docusate Sodium [Colace] 100 mg PO BID #30 capsule 12/21/17 [Rx] Ibuprofen 800 mg PO Q8H PRN #30 tablet 12/21/17 [Rx] Buspirone HCl [Buspar] 7.5 mg PO BID 02/14/18 [History] hydrOXYzine pamoate [HydrOXYzine Pamoate] 25 - 50 mg PO Q6H PRN 02/14/18 [ History] 3 Allergy/AdvReac Type Severity Reaction Status Date / Time amitriptyline Allergy Nightmare Verified 02/14/18 22:03 All Systems Review: The remainder of the systems were reviewed and are negative - Constitutional Constitutional: no chills, no fatigue, no fever(s) - Cardiovascular Cardiovascular: no chest pain at rest, no chest pain with exertion, no diaphoresis, no irregular heart rhythm, no radiating jaw, neck or arm pain, no leg edema - Respiratory Respiratory: no cough, no dyspnea, no wheezing - Gastrointestinal Gastrointestinal: no abdominal pain, no constipation, no diarrhea - Neurological Neurological: focal weakness (He has had weakness in his left arm on and off for years), no abnormal speech, no dizziness Physical Examination Vital Signs, Last 4 Hours Temp Pulse Resp BP Pulse Ox 02/15/18 07:19 98.4 F 81 20 134/84 96 General: Other (Appears uncomfortable in his bed, sweating, tearing up) HEENT: Atraumatic, Normocephaly, Mucus Membranes Moist Neck: No JVD Cardiac: Reg Rate and Rhythm, No Murmur Lungs: Normal Breath Sounds, No Wheeze, Rales, Rhonchi Neuro: Alert and responsive Abdomen: Soft, Non-Tender Skin: No rashes noted on visualized skin Musculoskeletal: Other (Tenderness over aniya left pectoral muscle) Extremities: No Clubbing, No Cyanosis, No Edema Results 02/14/18 21:14 02/14/18 21:14 Lab Results 02/15/18 03:33 Troponin I < 0.03 Consult Discharge Plan - Plan Referrals: Destiney Richard [Primary Care Provider] -
[2018-02-15] MEDS ORDERED: Gadolinium Contrast Agent (WT Based) IV PRN (09:30)
[2018-02-15] MEDS ORDERED: Naloxone 0.4 MG/ML INJ IVP PRN (09:32)
[2018-02-15] MEDS ORDERED: hydrOXYzine pamoate 25 MG CAPSULE PO PRN (09:36)
[2018-02-15 09:37] LABS: Amphetamine Screen,Urine Negative ng/mL (Cutoff=1000); Barbiturate Screen,Urine Negative ng/mL (Cutoff=200); Benzodiazepines Screen,Urine Negative ng/mL (Cutoff=200); Cannabinoid Screen,Urine Positive ng/mL (Cutoff = 50); Cocaine Screen,Urine Negative ng/mL (Cutoff= 300); Opiate Screen,Urine Positive ng/mL (Cutoff=300); Phencyclidine Screen,Urine Negative ng/mL (Cutoff=25)
--- NOTE | 2018-02-15 10:08 | Internal Med History&Physical ---
Date of Encounter: 02/15/18 Time of Encounter: 10:06 Internal Medicine - H&P: HPI Chief complaint: Chest pain/left shoulder pain Admitted From: Home Plans for Post Hospital Care: Home History of present illness: Mr. Gauthier is a 52 year old male. It was yesterday morning when this patient woke up with severe pain in the area of left shoulder. The pain was not getting any better, he decided to call EMS yesterday evening. He arrived to our hospital shortly after 8 PM. He has had chronic her left shoulder pain since he was a teenager. The pain likely originated from injury or injuries he got when playing football as a teenager. He got 2 injections to the left shoulder area in the past; the last one happened about 2 years ago. He does not remember any imaging studies for that joint done recently. The pain got worse yesterday morning; it is constant in nature. Was associated with diaphoresis yesterday morning/afternoon. He is not able to raise his left arm due to pain. The patient run out of Percocet a few days ago. The patient was altered to mental status, when initially evaluated by the ER physician. If it is after a couple hours later, when he was getting CT of chest /abdomen/pelvis. He does not have any cardiac history. He denies exertional chest pain and worsening of exercise tolerance He has been treated for depression and anxiety for years. He does see a mental health professional on a regular basis. It was about 4 years ago when he severely injured his right great toe. It was amputated. He has had the chronic right foot pain/low back pain since then. His past medical problems include chronic left shoulder pain, depression and anxiety, chronic right foot pain/low back pain, BPH and hyperlipidemia. REVIEW OF SYSTEMS: All 14 organ systems were reviewed by me with the patient. Positive and pertinent negative findings are listed above. The rest of organ systems is negative. PHYSICAL EXAM: Skin: Free of rash and discoloration. Musculoskeletal: He has severely limited active and passive movements in the left shoulder. There is tenderness to palpation of the area located to below the left clavicle. Eyes: Sclera is white. There is no discharge from eyes. ENMT: Oral/pharyngeal mucosa is normal in appearance. There is no discharge from nose or ears. Respiratory: Normal breath sounds with no crackles and wheezes bilaterally. CV: Heart is regular with no gallop or murmur. GI: Abdomen is flat and soft with no palpable mass or visceromegaly. : There is no tenderness in patient's flanks bilaterally. Neuro exam: He has good strength in upper and lower extremities. He has normal eye movements. Psychiatric: He has normal affect. His thought process is appropriate to the situation. A/P: Chest pain. Atypical. No history of cardiac problems. His EKG shows a junctional rhythm with bigeminy. His troponin is normal on 2 occasions. Cardiology is consulted. Left shoulder pain. Acute on chronic. Likely precipitated by sleeping in an uncomfortable position. I will obtain MRI of left shoulder. I will keep him on scheduled ibuprofen and when necessary Percocet. I will consult orthopedic surgery, if needed. Depression with anxiety. He takes multiple medications for that problem. His altered mental status observed recently is likely due to taking his medications. He might have had withdrawal symptoms from not taking Percocet in the last few days. His other problems are described by me above. They seem to be stable/under control. Past Med Surg Social Fam HX - Past Medical History Medical history: arthritis, hyperlipidemia, hypertension, other Additional medical history: chronic back pain Psychiatric history: anxiety, depression - Past Surgical History Surgical History: orthopedic, other Additional surgical history: right great toe amputation - Social History Smoking Status: Current every day smoker Packs per day: 1 Smokeless Tobacco Status: No Alcohol use: none Drug use: marijuana - Family History Mother Hx Family Endocrine Disorder: Yes (DM) Internal Medicine - H&P: Meds Atorvastatin [Lipitor] 10 mg PO HS 12/20/17 [History] Cholecalciferol (D-3) [Vitamin D] 1,000 unit PO DAILY 12/20/17 [History] Doxepin HCl 10 mg PO HS 12/20/17 [History] Folic Acid 1 mg PO DAILY 12/20/17 [History] Gabapentin [Neurontin] 800 mg PO QID 12/20/17 [History] Oxycodone HCl/Acetaminophen [Percocet 5-325 mg Tablet] 1 tab PO Q6H PRN [History] Tamsulosin HCl [Flomax] 0.4 mg PO DAILY 12/20/17 [History] Venlafaxine XR (24 HR) [Effexor Xr] 150 mg PO DAILY 12/20/17 [History] clonazePAM [Klonopin] 1 mg PO BID 12/20/17 [History] Docusate Sodium [Colace] 100 mg PO BID #30 capsule 12/21/17 [Rx] Ibuprofen 800 mg PO Q8H PRN #30 tablet 12/21/17 [Rx] Buspirone HCl [Buspar] 7.5 mg PO BID 02/14/18 [History] hydrOXYzine pamoate [HydrOXYzine Pamoate] 25 - 50 mg PO Q6H PRN 02/14/18 [ History] 3 Allergy/AdvReac Type Severity Reaction Status Date / Time amitriptyline Allergy Nightmare Verified 02/14/18 22:03 - Constitutional Vitals: Temp Pulse Resp BP Pulse Ox 98.4 F 81 20 134/84 96 02/15/18 07:19 02/15/18 07:19 02/15/18 07:19 02/15/18 07:19 02/15/18 07:19 General appearance: Present: A&O X 3, answers questions appropriately Exam: xx Internal Med - H&P Results - Labs CBC & Chem 7: 02/14/18 21:14 02/14/18 21:14 Labs: Cardiac Enzymes 02/15/18 Range/Units 03:33 Troponin I < 0.03 (< 0.04) ng/mL - Assessment and plan (1) Chest pain Current Visit: Yes Status: Acute Qualifiers: Chest pain type: unspecified Qualified Code(s): R07.9 - Chest pain, unspecified (2) Shoulder pain Current Visit: Yes Status: Acute Qualifiers: Chronicity: acute Laterality: left Qualified Code(s): M25.512 - Pain in left shoulder (3) Depression with anxiety Current Visit: Yes Status: Chronic - Time Spent With Patient Total time spent is greater than 50% in coordination of care (as documented) at patient's floor/unit and/or counseling patient: 25 - 35 minutes - VTE Reasons for not Prescribing Prophylaxis: Treatment not Indicated - Low risk for VTE Deep Vein Thrombosis/Pulmonary Embolism Present on Admission: No
[2018-02-15] MEDS: Gabapentin 400 MG CAPSULE PO SCH ×3 (14:44→20:56)
[2018-02-15 15:32] LABS: Bacteria,Urine Moderate per hpf (None-Few); Bilirubin,Urine Negative (Negative); Blood,Urine Negative (Negative); Clarity,Urine Clear (Clear); Color,Urine Yellow (Yellow); Hyaline Casts,Urine None Seen per lpf (None-Few); Ketones,Urine Negative (Negative); Leukocyte Esterase,Urine Small (Negative); Nitrite,Urine Negative (Negative); Protein,Urine Negative (Neg-Trace); RBC,Urine 0-3 per hpf (0-3); Specific Gravity,Urine 1.029 (1.010-1.025); Squamous Epithelial Cell,Urine Moderate per lpf (None-Few); Urobilinogen,Urine Normal (Normal)
[2018-02-15 15:33] LABS: Glucose,Urine (UA) Normal (Normal)
[2018-02-15] MEDS: Ibuprofen 800 MG TABLET PO SCH (16:58)
[2018-02-15] MEDS: clonazePAM 1 MG TABLET PO SCH (20:55)
[2018-02-15] MEDS ORDERED: Doxepin Hcl [Doxepin Hcl] 10 MG PO SCH (21:00)
[2018-02-16] MEDS: *HR* OxyCODONE/APAP 5/325 TABLET PO PRN ×2 (05:18→11:53)
[2018-02-16] MEDS ORDERED: Folic Acid 1 MG TABLET PO SCH (09:00)
[2018-02-16] MEDS ORDERED: Venlafaxine XR (24 HR) 150 MG CAP.ER.24H PO SCH (09:00)
[2018-02-16] MEDS ORDERED: Cholecalciferol (D-3) 1,000 UNIT TABLET PO SCH (09:00)
[2018-02-16] MEDS: Gabapentin 400 MG CAPSULE PO SCH (09:30)
[2018-02-16] MEDS: clonazePAM 1 MG TABLET PO SCH (09:31)
[2018-02-16] MEDS: Ibuprofen 800 MG TABLET PO SCH ×2 (09:32→11:53)
--- NOTE | 2018-02-16 11:28 | Discharge Summary ---
- NOTES TO OUTPATIENT PROVIDER Notes to Outpatient Provider: He needs to have a follow-up at the chronic pain management clinic (has an appointment). Date of Encounter: 02/16/18 Time of Encounter: 11:26 - Discharge Diagnosis (1) Chest pain Priority: Primary Status: Acute Qualifiers: Chest pain type: unspecified Qualified Code(s): R07.9 - Chest pain, unspecified (2) Shoulder pain Priority: Primary Status: Acute Qualifiers: Chronicity: acute Laterality: left Qualified Code(s): M25.512 - Pain in left shoulder (3) Depression with anxiety Priority: Secondary Status: Chronic Hospital course: HOSPITAL COURSE: The patient is a 52-year-old male. We admitted him with left shoulder pain with radiation to the central anterior chest. The patient has had chronic left shoulder pain secondary to injuries he got in the past, when playing football. We ruled out myocardial infarction. See notes from cardiology. His pain is definitely noncardiac. I did MRI of left shoulder. It showed evidence for chronic injury/ degeneration. It does not seem to be for surgical interventions. CONDITION AT DISCHARGE: His left shoulder pain is under fair control. He is on scheduled ibuprofen and when necessary increased dose of Percocet. Skin: Free of rash and discoloration. Respiratory: Normal breath sounds with no crackles and wheezes bilaterally. CV: Heart is regular with no gallop or murmur. GI: Abdomen is flat and soft with no palpable mass or visceromegaly. Neuro exam: There is no focal deficits. Normal speech, swallowing and gait. SEE DISCHARGE ORDERS/MEDICATIONS.. The patient needs chronic pain management. Somebody made an appointment for him before this hospitalization. He also needs help from mental health services. Discharge discussed with: patient - Time Spent with Patient Total time spent providing and/or coordinating discharge services: Greater than 30 minutes (35 minutes) - Discharge Medications Prescriptions: Ibuprofen [Motrin] 600 mg PO TIDWM #90 tablet Home Medications: Atorvastatin [Lipitor] 10 mg PO HS 12/20/17 [History] Cholecalciferol (D-3) [Vitamin D] 1,000 unit PO DAILY 12/20/17 [History] Doxepin HCl 10 mg PO HS 12/20/17 [History] Folic Acid 1 mg PO DAILY 12/20/17 [History] Gabapentin [Neurontin] 800 mg PO QID 12/20/17 [History] Tamsulosin HCl [Flomax] 0.4 mg PO DAILY 12/20/17 [History] Venlafaxine XR (24 HR) [Effexor Xr] 150 mg PO DAILY 12/20/17 [History] clonazePAM [Klonopin] 1 mg PO BID 12/20/17 [History] Docusate Sodium [Colace] 100 mg PO BID #30 capsule 12/21/17 [Rx] Buspirone HCl [Buspar] 7.5 mg PO BID 02/14/18 [History] hydrOXYzine pamoate [HydrOXYzine Pamoate] 25 - 50 mg PO Q6H PRN 02/14/18 [ History] Ibuprofen [Motrin] 600 mg PO TIDWM #90 tablet 02/16/18 [Rx] Oxycodone HCl/Acetaminophen [Percocet 5-325 mg Tablet] 1.5 tab PO Q6H PRN 10 Days #30 02/16/18 [Rx] Allergies/Adverse Reactions: 3 Allergy/AdvReac Type Severity Reaction Status Date / Time amitriptyline Allergy Nightmare Verified 02/14/18 22:03 Date of admission: 02/15/18 00:00 Primary care physician: Destiney Richard Discharging clinician: Abel Omalley Anticipated date of discharge: 02/16/18 - Constitutional Vitals: Temp Pulse Resp BP Pulse Ox 99.0 F 79 18 120/80 91 02/16/18 07:10 02/16/18 07:10 02/16/18 07:10 02/16/18 07:10 02/16/18 07:10 General appearance: Present: A&O X 3, answers questions appropriately Exam: xx - Patient Status Disposition: Home, Self-Care Condition: Fair Functional capacity at discharge: independent ambulation - Discharge Instructions Instructions: Chest Pain (DC) Follow Up With: Destiney Richard [Primary Care Provider] - - Diet and Activity Activity: resume usual activities as tolerated Diet: low fat, low cholesterol - VTE Reasons for not Prescribing Prophylaxis: Treatment not Indicated - Low risk for VTE Deep Vein Thrombosis/Pulmonary Embolism Present on Admission: No
[2018-02-16 11:36] VITALS: BP 134/89
--- NOTE | 2018-02-19 12:05 | Electrocardiograph Report ---
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 Electronically Signed On 02-19-2018 12:03:55 EDT by Jaylen Dhaliwal
== END 2018-02-16 13:53 | disposition home or self-care (01) ==
LOC: 3BNU 20:26 → EMEROOARM 20:26 → SUATTDRO 02-15 → 3BNU 02-15 01:19
PROVIDERS: ADMIT Pediatrics; ATTEND Internal Medicine

== ENCOUNTER 2019-05-20 20:02 | Inpatient (IN) ==
[2019-05-20] MEDS ORDERED: 0.9 % Sodium Chloride 1,000 ML IVC ONE ×2 (20:17→23:14)
[2019-05-20 20:45] LABS: Hematocrit 43.1 % (37.5-50.1); Hemoglobin 14.7 g/dL (12.9-16.9); Mean Corpuscular HGB Conc 34.1 g/dL (31.6-35.5); Mean Corpuscular Hemoglobin 30.8 pg (28.0-33.3); Mean Corpuscular Volume 90.4 fL (83.0-100.0); Mean Platelet Volume 10.3 fL (9.4-12.4); Platelet Count 189 K/mcL (140-400); Red Blood Count 4.77 M/mcL (4.19-5.50); Red Cell Distribution Width 12.6 % (11.5-14.5); White Blood Count 7.4 K/mcL (4.3-11.1)
[2019-05-20 20:50] LABS: INR 1.1; Prothrombin Time 12.4 Seconds (9.4-12.1)
[2019-05-20 20:52] LABS: Activated Partial Thrombo Time 33.5 Seconds (26.0-36.0)
[2019-05-20 21:07] LABS: Alanine Aminotransferase 20 Units/L (7-52); Albumin 4.2 g/dL (3.5-5.7); Albumin/Globulin Ratio 1.4 (1.1-2.2); Alkaline Phosphatase 57 Units/L (34-104); Aspartate Amino Transferase 23 Units/L (13-39); BUN/Creatinine Ratio 14 (6-26); Bilirubin,Direct 0.1 mg/dL (0.0-0.2); Bilirubin,Indirect 0.2 mg/dL (0.0-1.0); Bilirubin,Total 0.3 mg/dL (0.3-1.0); Blood Urea Nitrogen 20 mg/dL (6-20); Calcium 9.1 mg/dL (8.6-10.3); Carbon Dioxide 27 mEq/L (23-29); Chloride 100 mEq/L (98-107); Creatine Kinase 71 Units/L (30-223); Ethanol < 10 mg/dL (Less than 10); Globulin 3.1 g/dL (2.4-3.5); Glucose 101 mg/dL (70-105); Osmolality,Calculated 293 (280-300); Potassium 3.9 mEq/L (3.5-5.1); Sodium 140 mEq/L (136-145); Total Protein 7.3 g/dL (6.4-8.9); Troponin I 0.03 ng/mL (< 0.04); eGFR For African Americans > 60 (> 60); eGFR For Non-African Americans 54 (> 60)
[2019-05-20 21:18] LABS: Anisocytosis 1+ (Not Present); Lymphocytes # 1.2 K/mcL (0.6-4.6); Monocytes # 0.6 K/mcL (0.0-1.3); Neutrophils # 5.6 K/mcL (1.6-8.9); Platelet Estimate Normal (Normal)
[2019-05-20] MEDS ORDERED: Isovue-370 500 ML BOTTLE IVP ONE (21:21)
[2019-05-20 22:33] LABS: Bilirubin,Urine Negative (Negative); Blood,Urine Negative (Negative); Clarity,Urine Clear (Clear); Color,Urine Yellow (Yellow); Glucose,Urine (UA) Normal (Normal); Ketones,Urine Negative (Negative); Protein,Urine 30 mg/dL (Neg-Trace); Specific Gravity,Urine 1.016 (1.010-1.025)
[2019-05-20 22:34] LABS: Leukocyte Esterase,Urine Negative (Negative); Nitrite,Urine Negative (Negative); Urobilinogen,Urine Normal (Normal)
[2019-05-20 22:36] LABS: Amphetamine Screen,Urine Negative ng/mL (Cutoff=1000); Barbiturate Screen,Urine Negative ng/mL (Cutoff=200); Benzodiazepines Screen,Urine Negative ng/mL (Cutoff=200); Cannabinoid Screen,Urine Positive ng/mL (Cutoff = 50); Cocaine Screen,Urine Negative ng/mL (Cutoff= 300); Opiate Screen,Urine Negative ng/mL (Cutoff=300); Phencyclidine Screen,Urine Negative ng/mL (Cutoff=25)
[2019-05-21] MEDS ORDERED: Naloxone 0.4 MG/ML INJ IVP PRN (06:04)
[2019-05-21] MEDS ORDERED: 0.9 % Sodium Chloride 1,000 ML IVC SCH (06:15)
[2019-05-21 07:20] LABS: Hematocrit 39.7 % (37.5-50.1); Mean Corpuscular Volume 93.9 fL (83.0-100.0); Mean Platelet Volume 10.3 fL (9.4-12.4); Platelet Count 161 K/mcL (140-400); Red Blood Count 4.23 M/mcL (4.19-5.50); Red Cell Distribution Width 12.6 % (11.5-14.5); White Blood Count 6.9 K/mcL (4.3-11.1)
[2019-05-21 07:28] LABS: Hemoglobin 13.1 g/dL (12.9-16.9)
[2019-05-21 07:39] LABS: BUN/Creatinine Ratio 15 (6-26); Blood Urea Nitrogen 16 mg/dL (6-20); Calcium 8.5 mg/dL (8.6-10.3); Carbon Dioxide 24 mEq/L (23-29); Chloride 106 mEq/L (98-107); Glucose 99 mg/dL (70-105); Osmolality,Calculated 293 (280-300); Potassium 3.6 mEq/L (3.5-5.1); Sodium 141 mEq/L (136-145); eGFR For African Americans > 60 (> 60); eGFR For Non-African Americans > 60 (> 60)
[2019-05-21] MEDS: 0.9 % Sodium Chloride 1,000 ML IVC SCH ×2 (15:04)
[2019-05-21] MEDS: Acetaminophen 325 MG TABLET PO PRN ×2 (15:11→19:13)
[2019-05-22 06:09] LABS: Amylase 46 Units/L (29-103); BUN/Creatinine Ratio 14 (6-26); Blood Urea Nitrogen 15 mg/dL (6-20); Calcium 8.5 mg/dL (8.6-10.3); Carbon Dioxide 22 mEq/L (23-29); Chloride 109 mEq/L (98-107); Glucose 106 mg/dL (70-105); Lipase 51 Units/L (11-82); Osmolality,Calculated 295 (280-300); Potassium 3.6 mEq/L (3.5-5.1); Sodium 142 mEq/L (136-145); eGFR For African Americans > 60 (> 60); eGFR For Non-African Americans > 60 (> 60)
[2019-05-22 06:12] LABS: Adenovirus Not Detected (Not Detect); Bordetella Pertussis Not Detected (Not Detect); Chlamydophila pneumoniae Not Detected (Not Detect); Coronavirus 229E Not Detected (Not Detect); Coronavirus HKU1 Not Detected (Not Detect); Coronavirus NL63 Not Detected (Not Detect); Coronavirus OC43 Not Detected (Not Detect); Human Metapneumovirus Not Detected (Not Detect); Human Rhinovirus/Enterovirus Not Detected (Not Detect); Influenza A Subtype 2009 H1 Not Detected (Not Detect); Influenza B Not Detected (Not Detect); Mycoplasma pneumoniae Not Detected (Not Detect); Parainfluenza Virus 1 Not Detected (Not Detect); Parainfluenza Virus 2 Not Detected (Not Detect); Parainfluenza Virus 3 Not Detected (Not Detect); Parainfluenza Virus 4 Not Detected (Not Detect); Respiratory Syncytial Virus Not Detected (Not Detect)
[2019-05-22] MEDS ORDERED: Ipratropium/Albuterol Neb 3 ML IH PRN (08:11)
[2019-05-22] MEDS: 0.9 % Sodium Chloride 1,000 ML IVC SCH ×2 (08:33→11:40)
[2019-05-22] MEDS ORDERED: Azithromycin 500 MG in 0.9 % Sodium Chloride 250 ML IVPB SCH (09:00)
[2019-05-22 09:08] LABS: Campylobacter by PCR Not detected (Not detect); Plesiomonas shigelloides PCR Not detected (Not detect); Salmonella PCR Not detected (Not detect); Vibrio PCR Not detected (Not detect); Vibrio cholerae PCR Not detected (Not detect); Yersinia enterocolitica PCR Not detected (Not detect)
[2019-05-22 09:09] LABS: Adenovirus F 40/41 PCR Not detected (Not detect); Astrovirus PCR Not detected (Not detect); C.difficile Toxin A/B Gene PCR DETECTED (Not detect); Cryptosporidium by PCR Not detected (Not detect); Cyclospora cayetanensis PCR Not detected (Not detect); E. coli O157 by PCR Not detected (Not detect); Entamoeba histolytica PCR Not detected (Not detect); Enteroaggregative E.coli(EAEC) Not detected (Not detect); Enteropathogenic E.coli(EPEC) DETECTED (Not detect); Enterotoxigenic E.coli (ETEC) Not detected (Not detect); Giardia lamblia PCR Not detected (Not detect); Norovirus GI/GII PCR Not detected (Not detect); Rotavirus A PCR Not detected (Not detect); Sapovirus PCR Not detected (Not detect); Shig/EnteroinvasiveE coli EIEC Not detected (Not detect); Shigalike tox-prod E coli STEC Not detected (Not detect)
[2019-05-22] MEDS: predniSONE 20 MG TABLET PO SCH (09:36)
[2019-05-22] MEDS: Acetaminophen 325 MG TABLET PO PRN ×2 (09:36→16:59)
[2019-05-22 10:01] LABS: Basophils % 0.4 %; Eosinophils # 0.1 K/mcL (0.0-0.6); Eosinophils % 1.6 %; Hematocrit 41.4 % (37.5-50.1); Hemoglobin 13.9 g/dL (12.9-16.9); Immature Granulocytes % 0.4 % (0-4); Lymphocytes # 1.6 K/mcL (0.6-4.6); Lymphocytes % 19.9 %; Mean Corpuscular HGB Conc 33.6 g/dL (31.6-35.5); Mean Corpuscular Hemoglobin 30.5 pg (28.0-33.3); Monocytes # 0.6 K/mcL (0.0-1.3); Monocytes % 7.1 %; Neutrophils # 5.8 K/mcL (1.6-8.9); Platelet Count 187 K/mcL (140-400); Red Blood Count 4.55 M/mcL (4.19-5.50); Red Cell Distribution Width 12.6 % (11.5-14.5); Segmented Neutrophils % 70.6 %; White Blood Count 8.2 K/mcL (4.3-11.1)
[2019-05-22] MEDS: Ipratropium/Albuterol Neb 3 ML IH SCH ×3 (10:58→21:56)
[2019-05-22] MEDS: Vancomycin Oral Soln 125 MG/2.5 ML UDC PO SCH ×4 (11:40→20:04)
[2019-05-23] MEDS: Ipratropium/Albuterol Neb 3 ML IH SCH ×3 (04:40→15:25)
[2019-05-23] MEDS: 0.9 % Sodium Chloride 1,000 ML IVC SCH (05:07)
[2019-05-23 07:13] LABS: Basophils % 0.2 %; Eosinophils # 0.1 K/mcL (0.0-0.6); Eosinophils % 0.9 %; Hematocrit 40.8 % (37.5-50.1); Hemoglobin 13.5 g/dL (12.9-16.9); Immature Granulocytes % 0.5 % (0-4); Lymphocytes % 17.7 %; Mean Corpuscular HGB Conc 33.1 g/dL (31.6-35.5); Mean Corpuscular Volume 93.6 fL (83.0-100.0); Mean Platelet Volume 10.5 fL (9.4-12.4); Monocytes # 0.7 K/mcL (0.0-1.3); Monocytes % 6.6 %; Neutrophils # 8.2 K/mcL (1.6-8.9); Platelet Count 214 K/mcL (140-400); Red Blood Count 4.36 M/mcL (4.19-5.50); Red Cell Distribution Width 12.6 % (11.5-14.5); Segmented Neutrophils % 74.1 %; White Blood Count 11.1 K/mcL (4.3-11.1)
[2019-05-23 07:33] LABS: BUN/Creatinine Ratio 17 (6-26); Blood Urea Nitrogen 16 mg/dL (6-20); Calcium 8.8 mg/dL (8.6-10.3); Carbon Dioxide 24 mEq/L (23-29); Chloride 108 mEq/L (98-107); Glucose 104 mg/dL (70-105); Osmolality,Calculated 297 (280-300); Potassium 3.3 mEq/L (3.5-5.1); Sodium 143 mEq/L (136-145); eGFR For African Americans > 60 (> 60); eGFR For Non-African Americans > 60 (> 60)
[2019-05-23] MEDS: predniSONE 20 MG TABLET PO SCH ×2 (08:40→08:47)
[2019-05-23] MEDS: Acetaminophen 325 MG TABLET PO PRN ×2 (08:41→17:38)
[2019-05-23] MEDS: Vancomycin Oral Soln 125 MG/2.5 ML UDC PO SCH ×3 (08:41→17:34)
[2019-05-23] MEDS ORDERED: Azithromycin 250 MG TABLET PO SCH (09:00)
[2019-05-23 10:39] VITALS: BP 110/59
== END 2019-05-23 18:40 | disposition home or self-care (01) | DRG 872 ==
LOC: 3NENU 20:02 → EMEROOARM 20:02 → SUATTDRO 05-21 00:06 → 3NENU 05-21 01:03 → 3ANU 05-22 13:14
PROVIDERS: ADMIT Internal Medicine; ATTEND Internal Medicine

== ENCOUNTER 2022-01-09 19:22 | Observation (INO) ==
[2022-01-09 21:41] LABS: Basophils # 0.1 K/mcL (0.0-0.2); Basophils % 0.8 %; Eosinophils # 0.3 K/mcL (0.0-0.6); Eosinophils % 3.1 %; Hematocrit 47.8 % (37.5-50.1); Hemoglobin 15.7 g/dL (12.9-16.9); Immature Granulocytes % 0.3 % (0-4); Lymphocytes # 3.2 K/mcL (0.6-4.6); Lymphocytes % 31.1 %; Mean Corpuscular HGB Conc 32.8 g/dL (31.6-35.5); Mean Corpuscular Volume 91.2 fL (83.0-100.0); Mean Platelet Volume 10.2 fL (9.4-12.4); Monocytes # 0.8 K/mcL (0.0-1.3); Monocytes % 7.7 %; Neutrophils # 5.9 K/mcL (1.6-8.9); Platelet Count 251 K/mcL (140-400); Red Blood Count 5.24 M/mcL (4.19-5.50); Red Cell Distribution Width 14.1 % (11.5-14.5); White Blood Count 10.3 K/mcL (4.3-11.1)
[2022-01-09 21:58] LABS: Bilirubin,Urine Negative (Negative); Blood,Urine Moderate (Negative); Clarity,Urine Ex.Turbid (Clear); Color,Urine Yellow (Yellow); Glucose,Urine (UA) Normal (Normal); Ketones,Urine Trace mg/dL (Negative); Leukocyte Esterase,Urine Large (Negative); Nitrite,Urine Positive (Negative); PH,Urine 7.5 pH Units (5.0-8.0); Protein,Urine >=300 mg/dL (Neg-Trace); Specific Gravity,Urine 1.022 (1.010-1.025); Urobilinogen,Urine Normal (Normal)
[2022-01-09 22:02] LABS: Albumin 5.1 g/dL (3.5-5.7); Bilirubin,Direct 0.1 mg/dL (0.0-0.2); Bilirubin,Indirect 0.5 mg/dL (0.0-1.0); Bilirubin,Total 0.6 mg/dL (0.3-1.0); Calcium 9.8 mg/dL (8.6-10.3); Globulin 2.5 g/dL (2.4-3.5); Potassium 4.2 mEq/L (3.5-5.1); Total Protein 7.6 g/dL (6.4-8.9)
[2022-01-09 23:55] LABS: WBC,Urine TNTC per hpf (0-3)
[2022-01-09 23:56] LABS: Amorphous Sediment,Urine Few per hpf (None-Few)
[2022-01-10] MEDS ORDERED: cefTRIAXone 1,000 MG in Water for inj. (sterile) 10 ML IVP ONE ×2 (00:19→03:42)
[2022-01-10] MEDS ORDERED: Ondansetron 4 MG/2 ML VIAL IVP ONE (00:57)
[2022-01-10] MEDS ORDERED: Morphine Sulfate 2 MG/ML SYRINGE IVP ONE (00:57)
[2022-01-10] MEDS ORDERED: Lidocaine Jelly 11 ml Syringe TP ONE (01:16)
[2022-01-10] MEDS ORDERED: Iopamidol - 370 500 ML MLS IVP ONE (01:39)
[2022-01-10] MEDS ORDERED: *HR* HYDROmorphone (PF) 1 MG/ML SYRINGE IVP ONE (01:44)
[2022-01-10] MEDS ORDERED: 0.9 % Sodium Chloride 1,000 ML ONE (02:38)
[2022-01-10] MEDS ORDERED: *HR* HYDROmorphone 2 MG/ML SYRINGE IVP ONE (02:56)
[2022-01-10] MEDS ORDERED: Ketorolac 30 MG/ML VIAL IVP ONE (03:46)
[2022-01-10] MEDS ORDERED: Naloxone 0.4 MG/ML INJ IVP PRN ×2 (03:50→14:18)
[2022-01-10] MEDS ORDERED: *HR* OxyCODONE Immed Rel 5 MG TABLET PO PRN (03:50)
[2022-01-10] MEDS ORDERED: Acetaminophen 325 MG TABLET PO PRN ×2 (03:50→14:18)
[2022-01-10] MEDS ORDERED: *HR* HYDROcodone/Acet 5/325 mg TABLET PO PRN (03:50)
[2022-01-10] MEDS ORDERED: Ondansetron 4 MG/2 ML VIAL IVP PRN ×2 (03:50→14:18)
[2022-01-10 04:42] LABS: Hematocrit 41.8 % (37.5-50.1); Mean Corpuscular Hemoglobin 30.3 pg (28.0-33.3); Mean Corpuscular Volume 91.7 fL (83.0-100.0); Mean Platelet Volume 10.3 fL (9.4-12.4); Platelet Count 208 K/mcL (140-400); Red Blood Count 4.56 M/mcL (4.19-5.50); Red Cell Distribution Width 14.1 % (11.5-14.5); White Blood Count 7.8 K/mcL (4.3-11.1)
[2022-01-10 04:48] LABS: Hemoglobin 13.8 g/dL (12.9-16.9)
[2022-01-10 04:50] LABS: INR 1.1; Prothrombin Time 12.1 Seconds (9.4-12.1)
[2022-01-10 05:02] LABS: Calcium 9.1 mg/dL (8.6-10.3); Magnesium 1.8 mg/dL (1.6-2.6); Phosphorous 3.8 mg/dL (2.7-4.5); Potassium 3.5 mEq/L (3.5-5.1)
[2022-01-10] MEDS ORDERED: Nicotine 2 MG GUM BC PRN ×2 (06:55→14:18)
[2022-01-10] MEDS ORDERED: *HR* Enoxaparin 40 MG/0.4 ML SYRINGE SQ SCH (07:15)
[2022-01-10] MEDS ORDERED: *HR* Propofol 200 MG/20 ML VIAL IVP ONE (12:11)
[2022-01-10] MEDS ORDERED: *HR* FentaNYL (PF) 100 MCG/2 ML VIAL ONE ×2 (12:12→13:02)
[2022-01-10] MEDS ORDERED: Lidocaine -MPF 2% 5 ML VIAL ONE (12:12)
[2022-01-10] MEDS ORDERED: Ondansetron 4 MG/2 ML VIAL ONE (12:17)
[2022-01-10] MEDS ORDERED: Acetaminophen IV 1,000 MG/100 ML BAG IVPB ONE (12:52)
[2022-01-10] MEDS ORDERED: Hyoscyamine SL 0.125 MG TAB.SUBL SL PRN (14:18)
[2022-01-11 01:56] LABS: Basophils % 0.1 %; Hematocrit 41.1 % (37.5-50.1); Hemoglobin 13.5 g/dL (12.9-16.9); Immature Granulocytes % 0.5 % (0-4); Lymphocytes % 11.9 %; Mean Corpuscular HGB Conc 32.8 g/dL (31.6-35.5); Mean Corpuscular Volume 91.3 fL (83.0-100.0); Mean Platelet Volume 10.9 fL (9.4-12.4); Monocytes # 0.2 K/mcL (0.0-1.3); Platelet Count 204 K/mcL (140-400); Red Cell Distribution Width 13.5 % (11.5-14.5); Segmented Neutrophils % 85.5 %; White Blood Count 8.2 K/mcL (4.3-11.1)
[2022-01-11 02:16] LABS: Calcium 8.9 mg/dL (8.6-10.3)
[2022-01-11] MEDS: Ampicillin/Sulbactam 3,000 MG in 0.9 % Sodium Chloride Mini Bag 100 ML IVPB SCH ×3 (13:31→22:49)
[2022-01-12] MEDS: Ampicillin/Sulbactam 3,000 MG in 0.9 % Sodium Chloride Mini Bag 100 ML IVPB SCH (05:11)
[2022-01-12 05:39] LABS: Basophils # 0.1 K/mcL (0.0-0.2); Basophils % 0.5 %; Eosinophils # 0.3 K/mcL (0.0-0.6); Eosinophils % 2.5 %; Hematocrit 39.3 % (37.5-50.1); Hemoglobin 12.7 g/dL (12.9-16.9); Immature Granulocytes % 0.2 % (0-4); Lymphocytes # 2.4 K/mcL (0.6-4.6); Lymphocytes % 23.4 %; Mean Corpuscular HGB Conc 32.3 g/dL (31.6-35.5); Mean Corpuscular Hemoglobin 29.7 pg (28.0-33.3); Mean Corpuscular Volume 91.8 fL (83.0-100.0); Mean Platelet Volume 11.1 fL (9.4-12.4); Monocytes # 0.9 K/mcL (0.0-1.3); Monocytes % 9.3 %; Neutrophils # 6.4 K/mcL (1.6-8.9); Platelet Count 198 K/mcL (140-400); Red Blood Count 4.28 M/mcL (4.19-5.50); Segmented Neutrophils % 64.1 %
[2022-01-12 05:59] LABS: Calcium 8.5 mg/dL (8.6-10.3)
[2022-01-12] MEDS ORDERED: Ringers Solution, Lactated 1,000 ML IVC SCH (08:00)
[2022-01-12 08:05] VITALS: BP 126/79; PULSE 79; TEMP 97.6; O2SAT 94
== END 2022-01-12 10:55 | disposition home or self-care (01) ==
LOC: EMEROOARM 19:22 → 3NENU 19:22 → SUATTDRO 01-10 05:17 → 3NENU 01-10 05:45
PROVIDERS: ADMIT Internal Medicine; ATTEND Family Medicine

== ENCOUNTER 2022-01-14 21:30 | Observation (INO) ==
[2022-01-15 02:02] LABS: Bacteria,Urine Few per hpf (None-Few); Bilirubin,Urine Negative (Negative); Blood,Urine Large (Negative); Clarity,Urine Turbid (Clear); Color,Urine Yellow (Yellow); Glucose,Urine (UA) Normal (Normal); Ketones,Urine Negative (Negative); Leukocyte Esterase,Urine Moderate (Negative); Mucus,Urine Few per lpf (None-Few); Nitrite,Urine Negative (Negative); Protein,Urine 50 mg/dL (Neg-Trace); RBC,Urine TNTC per hpf (0-3); Specific Gravity,Urine 1.025 (1.010-1.025); Squamous Epithelial Cell,Urine Few per hpf (None-Few); Urobilinogen,Urine Normal (Normal); WBC,Urine TNTC per hpf (0-3)
[2022-01-15] MEDS ORDERED: *HR* OxyCODONE/APAP 5/325 TABLET PO ONE (03:47)
[2022-01-15 05:06] LABS: Basophils # 0.1 K/mcL (0.0-0.2); Basophils % 0.8 %; Eosinophils # 0.5 K/mcL (0.0-0.6); Eosinophils % 5.4 %; Hemoglobin 13.9 g/dL (12.9-16.9); Immature Granulocytes % 0.4 % (0-4); Lymphocytes # 2.7 K/mcL (0.6-4.6); Lymphocytes % 29.6 %; Mean Corpuscular HGB Conc 33.1 g/dL (31.6-35.5); Mean Corpuscular Hemoglobin 30.5 pg (28.0-33.3); Mean Corpuscular Volume 92.1 fL (83.0-100.0); Mean Platelet Volume 10.9 fL (9.4-12.4); Monocytes # 0.7 K/mcL (0.0-1.3); Neutrophils # 5.1 K/mcL (1.6-8.9); Platelet Count 223 K/mcL (140-400); Red Blood Count 4.56 M/mcL (4.19-5.50); Red Cell Distribution Width 14.1 % (11.5-14.5); Segmented Neutrophils % 55.8 %; White Blood Count 9.1 K/mcL (4.3-11.1)
[2022-01-15 05:11] LABS: Calcium 9.2 mg/dL (8.6-10.3); Potassium 3.5 mEq/L (3.5-5.1)
[2022-01-15] MEDS ORDERED: Ondansetron 4 MG/2 ML VIAL IVP PRN ×2 (05:14→16:41)
[2022-01-15] MEDS ORDERED: Naloxone 0.4 MG/ML INJ IVP PRN ×2 (05:14→16:41)
[2022-01-15] MEDS ORDERED: cephALEXin 500 MG CAPSULE PO SCH (09:00)
[2022-01-15] MEDS ORDERED: 0.9 % Sodium Chloride 1,000 ML IVC SCH ×2 (11:30→16:41)
[2022-01-15] MEDS ORDERED: Ondansetron 4 MG/2 ML VIAL ONE (13:35)
[2022-01-15] MEDS ORDERED: *HR* FentaNYL (PF) 100 MCG/2 ML VIAL ONE (13:35)
[2022-01-15] MEDS ORDERED: Lidocaine -MPF 2% 5 ML VIAL ONE (13:35)
[2022-01-15] MEDS ORDERED: *HR* Midazolam HCl 2 MG/2 ML VIAL ONE (13:35)
[2022-01-15] MEDS ORDERED: *HR* Propofol 200 MG/20 ML VIAL IVP ONE (13:35)
[2022-01-15] MEDS ORDERED: Hydrocortisone Rectal 2.5% CRM 28 GM TUBE RC PRN ×2 (14:34→16:41)
[2022-01-15] MEDS ORDERED: *HR* HYDROMORPHONE 2 MG/ML VIAL ONE (14:43)
[2022-01-15] MEDS ORDERED: ceFAZolin 2,000 MG in 0.9 % Sodium Chloride 100 ML IVPB ONE (14:50)
[2022-01-15] MEDS: *HR* HYDROmorphone PF 0.5 MG/0.5 ML SYRINGE IVP PRN ×4 (16:10→16:31)
[2022-01-15] MEDS: cephALEXin 500 MG CAPSULE PO SCH (21:55)
[2022-01-16 06:40] LABS: Basophils % 0.2 %; Hemoglobin 13.4 g/dL (12.9-16.9); Immature Granulocytes % 0.3 % (0-4); Lymphocytes # 1.1 K/mcL (0.6-4.6); Lymphocytes % 11.1 %; Mean Corpuscular HGB Conc 31.9 g/dL (31.6-35.5); Mean Corpuscular Hemoglobin 29.7 pg (28.0-33.3); Mean Corpuscular Volume 93.1 fL (83.0-100.0); Monocytes # 0.3 K/mcL (0.0-1.3); Neutrophils # 8.2 K/mcL (1.6-8.9); Platelet Count 219 K/mcL (140-400); Red Blood Count 4.51 M/mcL (4.19-5.50); Red Cell Distribution Width 13.6 % (11.5-14.5); Segmented Neutrophils % 85.4 %; White Blood Count 9.7 K/mcL (4.3-11.1)
[2022-01-16 07:00] LABS: Potassium 3.8 mEq/L (3.5-5.1)
[2022-01-16 07:54] VITALS: BP 124/72; PULSE 68; TEMP 98.4; O2SAT 97
[2022-01-16] MEDS: cephALEXin 500 MG CAPSULE PO SCH (08:25)
== END 2022-01-16 11:15 | disposition home or self-care (01) ==
LOC: EMEROOARM 21:30 → 2ANU 21:30
PROVIDERS: ADMIT Family Medicine; ATTEND Family Medicine